=== PATIENT | female | born 1975 | race Caucasian/White ===

== ENCOUNTER 2020-01-25 17:19 | Outpatient (REF) | payer BC, SELFPAY | END 2020-01-25 17:20 | disposition home or self-care (01) | LOC: HO.LNP 17:19 | PROVIDERS: Visit Provider Nurse Practitioner Family | DX: N39.0 Urinary tract infection, site not specified (principal) | CPT/HCPCS: 87086 ==

== ENCOUNTER 2020-05-18 08:58 | Outpatient (REF) | payer BC, SELFPAY ==
--- NOTE | ~2020-05-18 | MM_ITS ---
EXAMINATION: MM SCREENING DIGITAL BREAST TOMOSYNTHESIS, BILATERAL CLINICAL INFORMATION: Screening. Asymptomatic. The lifetime risk of breast cancer based on the Tyrer-Cuzick Model is 13%. COMPARISON: Mammography: 05/01/2019, 05/07/2018, 04/22/2017 TECHNIQUE: Digital breast tomosynthesis is performed in both the craniocaudal and mediolateral oblique views along with computer-aided detection (CAD). Synthesized 2D images are generated from the tomosynthesis. FINDINGS: There are scattered areas of fibroglandular density (ACR BI-RADS breast composition Category b). There are no significant masses, abnormal calcifications, or other abnormalities. There is stable parenchymal asymmetry on the left. There is no developing density. No significant changes from prior studies. MM/MM tomosynthesis screening BI IMPRESSION: No mammographic evidence of malignancy. ASSESSMENT: BI-RADS 2: Benign RECOMMENDATION: Routine annual mammography screening. This patient's information was entered into a reminder system with a target due date for their next mammogram.
== END 2020-05-18 08:59 | disposition home or self-care (01) ==
LOC: HO.MAMMO 08:58
PROVIDERS: PCP Internal Medicine; Visit Provider Internal Medicine
DX: Z12.31 Encounter for screening mammogram for malignant neoplasm of breast (principal)
CPT/HCPCS: 77063; 77067

== ENCOUNTER 2020-07-02 13:54 | Outpatient (REF) | payer BC, SELFPAY ==
[2020-07-03 09:24] LABS: BV Int Neg Control Negative (Negative); BV Int Pos Control Positive (Positive)
== END 2020-07-02 13:55 | disposition home or self-care (01) ==
LOC: HO.LAB 13:54
PROVIDERS: Visit Provider Advanced Practice Midwife
DX: Z01.411 Encounter for gynecological examination (general) (routine) with abnormal findings (principal); R23.2 Flushing; R10.2 Pelvic and perineal pain
CPT/HCPCS: 87480; 87510; 87660

== ENCOUNTER 2020-07-09 15:22 | Outpatient (REF) | payer BC, SELFPAY ==
--- NOTE | ~2020-07-09 | US_ITS ---
EXAMINATION: PELVIC ULTRASOUND CLINICAL INFORMATION: Pelvic pain COMPARISON: None TECHNIQUE: Transabdominal and transvaginal pelvic ultrasound was performed. Transvaginal exam was performed for better visualization of the uterus and ovaries. FINDINGS: The uterus is retroverted and measures 8.2 x 4 x 4.9 cm in dimension. There is a 1.3 x 1.1 x 1.5 cm hypoechoic area in the left uterine body adjacent to the endometrium questionable for a submucosal fibroid. No other focal uterine lesion is seen. Endometrial thickness is normal measuring 0.6 cm. The ovaries are normal. The right ovary measures 3.1 x 1.2 x 1.8 cm and the left ovary measures 3 x 1.3 x 1.6 cm. There is no fluid in the pelvis. US/US pelvic complete IMPRESSION: Question 1.3 x 1.5 x 1.1 cm submucosal left uterine body fibroid. Otherwise unremarkable exam.
--- NOTE | ~2020-07-09 | US_ITS ---
EXAMINATION: PELVIC ULTRASOUND CLINICAL INFORMATION: Pelvic pain COMPARISON: None TECHNIQUE: Transabdominal and transvaginal pelvic ultrasound was performed. Transvaginal exam was performed for better visualization of the uterus and ovaries. FINDINGS: The uterus is retroverted and measures 8.2 x 4 x 4.9 cm in dimension. There is a 1.3 x 1.1 x 1.5 cm hypoechoic area in the left uterine body adjacent to the endometrium questionable for a submucosal fibroid. No other focal uterine lesion is seen. Endometrial thickness is normal measuring 0.6 cm. The ovaries are normal. The right ovary measures 3.1 x 1.2 x 1.8 cm and the left ovary measures 3 x 1.3 x 1.6 cm. There is no fluid in the pelvis. US/US transvaginal IMPRESSION: Question 1.3 x 1.5 x 1.1 cm submucosal left uterine body fibroid. Otherwise unremarkable exam.
== END 2020-07-09 15:23 | disposition home or self-care (01) ==
LOC: HO.HMGCX 15:22
PROVIDERS: Visit Provider Advanced Practice Midwife
DX: R10.2 Pelvic and perineal pain (principal)
CPT/HCPCS: 76830; 76856

== ENCOUNTER → 2020-07-17 11:17 | Outpatient (BNVA) | payer BC, SELFPAY | PROVIDERS: Visit Provider Advanced Practice Midwife ==

== ENCOUNTER 2021-05-27 08:28 | Outpatient (REF) | payer BC, SELFPAY ==
--- NOTE | ~2021-05-27 | MM_ITS ---
EXAMINATION: MM SCREENING DIGITAL BREAST TOMOSYNTHESIS, BILATERAL CLINICAL INFORMATION: Screening. Asymptomatic. The lifetime risk of breast cancer based on the Tyrer-Cuzick Model is 13%. COMPARISON: Mammography: 05/18/2020, 05/13/2019, 05/07/2018, 04/22/2017 TECHNIQUE: Digital breast tomosynthesis is performed in both the craniocaudal and mediolateral oblique views along with computer-aided detection (CAD). Synthesized 2D images are generated from the tomosynthesis. FINDINGS: There are scattered areas of fibroglandular density (ACR BI-RADS breast composition Category b). There are no significant masses, abnormal calcifications, or other abnormalities. Parenchymal pattern is similar to prior exams. There is stable parenchymal asymmetry on the left. No developing density. The axilla are unremarkable. No significant changes. MM/MM tomosynthesis screening BI IMPRESSION: No mammographic evidence of malignancy. ASSESSMENT: BI-RADS 2: Benign RECOMMENDATION: Routine annual mammography screening. This patient's information was entered into a reminder system with a target due date for their next mammogram.
== END 2021-05-27 08:29 | disposition home or self-care (01) ==
LOC: HO.MAMMO 08:28
PROVIDERS: PCP Internal Medicine; Visit Provider Internal Medicine
DX: Z12.31 Encounter for screening mammogram for malignant neoplasm of breast (principal)
CPT/HCPCS: 77063; 77067

== ENCOUNTER → 2021-07-08 12:53 | Outpatient (BNVA) | payer BC, SELFPAY | PROVIDERS: PCP Internal Medicine; Visit Provider Advanced Practice Midwife | DX: Z13.89 Encounter for screening for other disorder (principal) ==

== ENCOUNTER 2022-03-16 07:02 | Outpatient (REF) | payer BC, SELFPAY ==
[2022-03-16 11:24] LABS: MANUAL DIFF FLAG NO
[2022-03-16 11:34] LABS: Basophils Absolute Auto 0.1 X10*3/uL (0.0-0.2); Basophils Percent Auto 1.1 % (0-2); Eosinophils Absolute Auto 0.2 X10*3/uL (0.0-0.4); Eosinophils Percent Auto 3.3 % (0-4); Hematocrit 41.3 % (37.0-47.0); Hemoglobin 13.5 g/dl (12.0-16.0); Imm Gran Abs Auto 0.02 X10*3/uL (0.00-0.03); Imm Gran Pct Auto 0.3 % (0.0-0.4); Lymphocytes Absolute Auto 2.5 X10*3/uL (1.2-4.9); Lymphocytes Percent Auto 39.3 % (20-40); Mean Corpuscular HGB Conc 32.7 g/dl (31.0-35.0); Mean Corpuscular Hemoglobin 28.5 pg (27.0-33.0); Mean Corpuscular Volume 87.1 fL (80.0-98.0); Mean Platelet Volume 9.7 fL (9.4-12.3); Monocytes Absolute Auto 0.4 X10*3/uL (0.1-1.2); Monocytes Percent Auto 6.9 % (2-11); Neutrophils Absolute Auto 3.1 x10*3/uL (2.0-8.3); Neutrophils Percent Auto 49.1 % (45-73); Platelet Count 341 X10*3/uL (160-400); Red Blood Count 4.74 X10*6/uL (4.20-5.50); Red Cell Distribution Width 13.2 % (11.0-16.0); White Blood Count 6.4 X10*3/uL (4.8-10.8)
[2022-03-16 11:37] LABS: Appearance Urine Clear; Color Urine Yellow; Glucose Urine UA Negative (Negative); Leukocyte Esterase Urine Negative (Negative); Nitrite Urine Negative (Negative); PH 6.5 (5.0-9.0); Specific Gravity - Urine 1.025 (1.005-1.025); UMIC TRIGGER UACC YES; Urine Blood Moderate (2+) (Negative); Urine Ketones Negative (Negative); Urine Protein Negative (Neg-Trace)
[2022-03-16 11:40] LABS: Bacteria Urine 1+ (None Seen); Hyaline Casts Urine 0-2 /LPF (0-2); WBC Urine 0-5 /HPF (0-5)
[2022-03-16 12:21] LABS: Alanine Aminotransferase 24 U/L (0-31); Albumin Level 4.1 g/dL (3.5-5.0); Alkaline Phosphatase 61 U/L (39-117); Anion Gap 11 (12-20); Aspartate Amino Transferase 16 U/L (5-31); Bilirubin Total 0.8 mg/dL (0.0-1.0); Blood Urea Nitrogen 14 mg/dL (9-16); Calcium 9.4 mg/dL (8.4-10.2); Carbon Dioxide 28 mmol/L (22-29); Chloride 107 mmol/L (96-108); Cholesterol 245 mg/dL; Estimated Glomerular Filt Rate > 60; Glucose Fasting 92 mg/dL (60-99); HDL Cholesterol 44 mg/dL; LDL Cholesterol Calculated 167 mg/dl; Potassium 4.4 mmol/L (3.3-5.1); Sodium 142 mmol/L (135-145); TSH reflex Free T4 3.71 uIU/mL (0.32-4.0); Total Protein 6.7 g/dL (6.5-8.0); Triglycerides 173 mg/dL; Vitamin D 25-OH Total 21.1 ng/mL (>30)
== END 2022-03-16 07:03 | disposition home or self-care (01) ==
LOC: HO.HMGCLDS 07:02
PROVIDERS: PCP Internal Medicine; Visit Provider Internal Medicine
DX: Z00.00 Encounter for general adult medical examination without abnormal findings (principal); E55.9 Vitamin D deficiency, unspecified; E78.00 Pure hypercholesterolemia, unspecified; R30.0 Dysuria; E66.01 Morbid (severe) obesity due to excess calories; Z68.41 Body mass index [BMI] 40.0-44.9, adult
CPT/HCPCS: 36415; 80053; 80061; 81001; 82306; 84443; 85025

== ENCOUNTER → 2022-05-18 11:22 | Outpatient (BNVA) | payer BC, SELFPAY | PROVIDERS: PCP Internal Medicine; Visit Provider Nurse Practitioner Family | DX: Z13.89 Encounter for screening for other disorder (principal) ==

== ENCOUNTER 2022-06-02 08:37 | Outpatient (REF) | payer BC, SELFPAY ==
--- NOTE | ~2022-06-02 | MM_ITS ---
EXAMINATION: MM SCREENING DIGITAL BREAST TOMOSYNTHESIS, BILATERAL CLINICAL INFORMATION: Screening. Asymptomatic. The lifetime risk of breast cancer based on the Tyrer-Cuzick Model is 12.2%. COMPARISON: Mammography: May 27, 2021 and studies dating back to February 02, 2014 TECHNIQUE: Digital breast tomosynthesis is performed in both the craniocaudal and mediolateral oblique views along with computer-aided detection (CAD). Synthesized 2D images are generated from the tomosynthesis. FINDINGS: There are scattered areas of fibroglandular density (ACR BI-RADS breast composition Category b). There are no significant masses, abnormal calcifications, or other abnormalities. MM/MM tomosynthesis screening BI IMPRESSION: No significant changes from prior exam. ASSESSMENT: BI-RADS 1: Negative RECOMMENDATION: Routine annual mammography screening. This patient's information was entered into a reminder system with a target due date for their next mammogram.
== END 2022-06-02 08:38 | disposition home or self-care (01) ==
LOC: HO.MAMMO 08:37
PROVIDERS: PCP Internal Medicine; Visit Provider Internal Medicine
DX: Z12.31 Encounter for screening mammogram for malignant neoplasm of breast (principal)
CPT/HCPCS: 77063; 77067

== ENCOUNTER → 2022-07-10 12:56 | Outpatient (BNVA) | payer BC, SELFPAY | PROVIDERS: PCP Internal Medicine; Visit Provider Advanced Practice Midwife | DX: Z13.89 Encounter for screening for other disorder (principal) ==

== ENCOUNTER 2022-07-15 10:51 | Outpatient (REF) | payer BC, SELFPAY ==
--- NOTE | ~2022-07-15 | US_ITS ---
EXAMINATION: US PELVIS CLINICAL INFORMATION: Pelvic and perineal pain; the last menstrual period was on 07/03/2022. COMPARISON: Pelvic ultrasound dated 07/09/2020. TECHNIQUE: Ultrasound of the pelvis is performed using both transabdominal and transvaginal transducers along with Doppler. Transvaginal imaging is performed due to inadequate visualization transabdominally. FINDINGS: The uterus is of normal size and echogenicity, measuring 8.6 x 4.3 x 4.1 cm. The uterus is retroverted and retroflexed. A regular, homogeneous endometrium is identified measuring 1.2 cm. The cervical length is cm. FIBROIDS: There is 1 fibroid seen. 1. Location: Leftward distal body, subendometrial. Size: 1.3 x 0.9 x 1.0 cm. Prior: 1.3 x 1.1 x 1.5 cm. Fibroid characteristics: Heterogeneous echotexture. Both ovaries are of normal size and echogenicity. The right ovary measures 3.1 x 0.8 x 1.3 cm for a volume of 1.7 mL. The left ovary measures 3.8 x 2.1 x 2.4 cm for a volume of 10.0 mL. The left ovary contains a 2.0 x 1.9 x 2.1 cm hemorrhagic cyst, with internal reticulated contents and no associated color Doppler flow. There is a small amount of free fluid in the cul-de-sac. No adnexal masses seen. US/US pelvic and transvaginal IMPRESSION: 1. A small uterine fibroid is seen. 2. A 2.1 cm benign left ovarian hemorrhagic cyst is incidentally noted. This requires no imaging follow-up. 3. There is a small amount of nonspecific free fluid in the cul-de-sac.
== END 2022-07-15 10:52 | disposition home or self-care (01) ==
LOC: HO.US 10:51
PROVIDERS: PCP Internal Medicine; Visit Provider Advanced Practice Midwife
DX: R10.2 Pelvic and perineal pain (principal)
CPT/HCPCS: 76830; 76856

== ENCOUNTER → 2022-07-29 07:46 | Outpatient (BNVA) | payer BC, SELFPAY | PROVIDERS: PCP Internal Medicine; Visit Provider Advanced Practice Midwife | DX: Z13.89 Encounter for screening for other disorder (principal) ==

== ENCOUNTER 2022-09-28 08:34 | Outpatient (REF) | payer BC, SELFPAY ==
--- NOTE | ~2022-09-28 | XR_ITS ---
EXAMINATION: XR FOOT, RIGHT CLINICAL INFORMATION: Right foot pain. COMPARISON: None available. TECHNIQUE: AP, lateral, and oblique views of the right foot. FINDINGS: There is no acute fracture or dislocation. The joint spaces are unremarkable. The tarsal bones are normally aligned. Very small plantar calcaneal spur. The soft tissues are unremarkable. XR/XR foot RT min 3V IMPRESSION: Very small plantar calcaneal spur. No acute abnormality or significant degenerative changes.
== END 2022-09-28 08:35 | disposition home or self-care (01) ==
LOC: HO.HMGCX 08:34
PROVIDERS: PCP Internal Medicine; Visit Provider Internal Medicine
DX: M79.671 Pain in right foot (principal)
CPT/HCPCS: 73630

== ENCOUNTER 2023-02-23 08:44 | Outpatient (AMB) | payer BC, SELFPAY ==
[2023-02-23 08:46] VITALS: BP 112/80; PULSE 61; O2SAT 96; BMI 40.8
--- NOTE | 2023-02-23 08:46 | MHC.PC.OV ---
"Vital Signs 02/23/23 08:46 Height 5 ft 2 in Weight 223 lb 2 oz BMI 40.8 BP 112/80 Blood Pressure Location Lt brachial Position Sitting Pulse 61 Pulse Source Pulse Oximeter Pulse Oximetry (%) 96 Oxygen Delivery Method Room Air Intake Visit Reasons: Annual Exam Hotel Concierge Required: No Accompanied by: Self / Same As Patient Allergies azithromycin [AZITHROMYCIN] Allergy (Unknown, Verified 02/23/23 09:17) TACHYCARDIA penicillin V Allergy (Unknown, Verified 02/23/23 09:17) angioedema Sulfa (Sulfonamide Antibiotics) [SULFA (SULFONAMIDE ANTIBIOTICS)] Allergy (Unknown, Verified 02/23/23 09:17) HIVES, TACHYCARDIA, hives Medication List - Last Reconciled 02/23/23 by Ketan Hyman MD bisacodyl (Dulcolax (bisacodyl)) 10 mg (2 x 5 mg) PO ONCE 1 day cholecalciferol (vitamin D3) 50 mcg PO DAILY 90 days famotidine (Pepcid) 20 mg PO BID PRN multivitamin (Multiple Vitamins tablet) 1 tab PO DAILY polyethylene glycol 3350 (Miralax) 238 grams PO ONCE Tobacco use date assessed: 02/23/23 Dental Screening Dental Screen Date: 02/23/23 Did you have a dental visit in the last 12 months?: Yes Did you have a dental problem in the last 6 months where you did not have access to dental care?: No Was dental information given to patient?: Patient has dentist HPI Annual Exam HPI Details Patient comes in today for her annual physical examination States that she feels okay She denies any headaches or dizziness Denies any chest pains, no SOB No nausea/vomiting, no abdominal pain No change in bowel habits noted Denies any acute urinary symptoms She is now scheduled for her screening colonoscopy and EGD on 04/16/2023 Is scheduled for her annual mammogram in May 2023 and her gynecology exam and pap smear in July 2023 [facility] Medical History Vitamin D deficiency Mixed hyperlipidemia Morbid obesity with BMI of 40.0-44.9, adult GERD (gastroesophageal reflux disease) Surgical History Hx of adenoidectomy Hx of tonsillectomy Family History Mother Ovarian cancer Maternal Grandmother History of breast cancer Social History Household Members: Spouse and Children Housing: House Alcohol intake: current Alcohol intake frequency: a few times a month Patient Tobacco Use Status: Never used Tobacco e-Cigarette/Vaping Use: Never Used Second Hand Smoke Exposure: No Current occupational status: employed 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 1. Little interest or pleasure in doing things: not at all 2. Feeling down, depressed, or hopeless: not at all 3. Trouble falling or staying asleep, or sleeping too much: not at all 4. Feeling tired or having little energy: not at all 5. Poor appetite or overeating: not at all 6. Feeling bad about yourself - or that you are a failure or have let yourself or your family down: not at all 7. Trouble concentrating on things, such as reading the newspaper or watching television: not at all 8. Moving or speaking so slowly that other people could have noticed. Or the opposite - being so fidgety or restless that you have been moving around a lot more than usual: not at all 9. Thoughts that you would be better off or of hurting yourself in some way: not at all Total score: 0 Depression Screening Interpretation: Negative Depression Screening Done: Yes 80771 - PHQ-9 Billing: Yes Source: Developed by Drs. Greg Foreman, Neeta Gomes, Pietro Mckeon and colleagues, with an educational carey from [employer]. Thrive Questionnaire Date Thrive assessed: 02/23/23 I am a: Patient What is your living situation today?: I have a steady place to live Within the past 12 months, did the food you bought not last and you didn't have the money to get more?: Never true Within the past 12 months, did you worry whether your food would run out before you got money to buy more?: Never true Do you have trouble paying for medicines?: No Do you have trouble getting transportation to medical appointments?: No Do you have trouble paying your heating and electricity bill?: No Do you have trouble taking care of your child, family member or friend?: No Do you have trouble with day-to-day activities such as bathing, preparing meals, shopping, managing finances, etc.?: No Are you currently unemployed and looking for a job?: No Are you interested in more education?: No Please select the resources that you would like help with: None Currently or been in a relationship where the following occur: no concerns reported AUDIT C Alcohol Use Questionnaire (AUDIT-C) 1. How often do you have a drink containing alcohol?: 2-4 times a month 2. How many drinks containing alcohol do you have on a typical day when you are drinking?: 1 or 2 3. How often do you have six or more drinks on one occasion?: Never Total Score: 2 Score Reviewed/Action Taken: Yes VANESSA-7 AMB Questionnaire VANESSA-7 Date VANESSA - 7 assessed: 02/23/23 Feeling nervous, anxious, or on edge: 0 = Not at all Not being able to stop or control worryin = Not at all Worrying too much about different things: 0 = Not at all Trouble relaxin = Not at all Being so restless that it is hard to sit still: 0 = Not at all Becoming easily annoyed or irritable: 0 = Not at all Feeling afraid as if something awful might happen: 0 = Not at all Total VANESSA-7 score (0-4 normal; 5-9 mild; 10-14 moderate; 15-21 severe): 0 Source: Developed by Drs. Greg Foreman, Neeta Gomes, Pietro Mckeon and colleagues, with an educational carey from [employer]. Review of Systems Const Denies chills, Denies fatigue, Denies fever(s), Denies headache(s) and Denies malaise Eyes Denies blurry vision, Denies change in vision, Denies irritation and Denies itchy eyes ENT Denies dysphagia, Denies dizziness, Denies otalgia, Denies headache(s), Denies nasal congestion, Denies neck pain, Denies odynophagia, Denies sinus pain and Denies sore throat Card Denies chest pain, Denies rapid heart rate, Denies irregular heart rhythm, Denies palpitations and Denies dyspnea Resp Denies chest congestion, Denies cough, Denies dyspnea and Denies wheezing GI Denies abdominal pain, Denies bloating, Denies constipation, Denies dysphagia, Denies heartburn, Denies diarrhea, Denies nausea, Denies odynophagia and Denies vomiting Denies hematuria, Denies urinary frequency, Denies dysuria, Denies urinary incontinence and Denies urinary urgency Musc Denies back pain, Denies arthralgias, Denies joint swelling, Denies muscle weakness and Denies neck pain Skin/Breast Denies breast pain, Denies breast mass, Denies change in pigmentation, Denies lesions, Denies rash and Denies unusual bruising Neuro Denies dizziness, Denies headache(s) and Denies paresthesias Psych Denies anxiety and Denies depression Endo Denies fatigue and Denies palpitations Tay/Lymph Denies easy bruising Aller/Immun Denies itchy eyes and Denies wheezing Physical exam (Primary Care) Vital Signs: Last Vital Signs Pulse 61 02/23/23 08:46 BP 112/80 02/23/23 08:46 Pulse Ox 96 02/23/23 08:46 Oxygen Delivery Method Room Air 02/23/23 08:46 BMI result Body Mass Index 40.8 Tobacco/Smoking Status: Tobacco use Status Tobacco use date assessed 02/23/23 02/23/23 08:48 Patient Tobacco Use Status Never used Tobacco 02/23/23 08:48 e-Cigarette/Vaping Use Never Used 02/23/23 08:48 PHQ-9: PHQ-9 Score PHQ-9: Total score 0 02/23/23 09:23 Depression Screening Interpretation: Negative Thrive Assessment: Date of Thrive Assessment Date Thrive assessed 02/23/23 02/23/23 08:48 Currently or been in a relationship where the following occur: no concerns reported Const General: no acute distress, alert and awake Orientation/consciousness: patient oriented x3 HENMT Head: Yes normocephalic and Yes atraumatic Ears: external ears normal, TM's normal bilaterally and EAC's normal General nose exam: No nasal discharge present Face and sinus: Yes normal facial exam and Yes sinuses nontender Teeth and gingiva: dentition normal Throat: Yes posterior oropharynx normal and Yes tonsils normal (no TP congestion) Eyes Eyelids: Yes eyelids normal Conjunctivae: conjunctivae normal Pupils: Equal, round and reactive pupils present EOM: EOMs intact bilaterally Neck Neck: Yes no lymphadenopathy and Yes supple Thyroid: Thyroid normal Resp Auscultation: clear to auscultation bilaterally, no rales and no wheezes Cardio Rate: regular rate Rhythm: regular rhythm Heart sounds: no murmurs GI Palpation (GI): Soft to palpation, nontender and No hepatosplenomegaly present Auscultation: normal bowel sounds General: Yes no CVA tenderness Back/Spine/Pelvis Back: no CVA tenderness Thoracic/Lumbar Spine: thoracic and lumbar spine normal to inspection Skin Lesions: no lesions Rashes: no rashes Neuro General: patient oriented x3, moves all extremities, no focal motor deficits and CN's II-XI intact bilaterally Cranial nerves: Yes Equal, round and reactive pupils present Cognition (Neuro): normal cognition Gait exam (Neuro): Normal gait present Extrem General: Yes no clubbing, cyanosis or edema Assessment and Plan Assessment & Plan (1) Annual physical exam: Code(s): Z00.00 - Encounter for general adult medical examination without abnormal findings Plan: Check labs Patient is scheduled for her screening colonoscopy and EGD on 04/16/2023 Is scheduled for her annual mammogram in May 2023 and her gynecology exam and pap smear in July 2023 (2) GERD (gastroesophageal reflux disease): Code(s): K21.9 - Gastro-esophageal reflux disease without esophagitis Qualifiers: Esophagitis presence: without esophagitis Qualified Code(s): K21.9 - Gastro-esophageal reflux disease without esophagitis Plan: Dietary restrictions reinforced Upper GI series done in the past revealed (+) reflux; patient states that she only takes OTC Pepcid as needed for symptomatic relief Will be getting a repeat EGD for follow up at the same time as her colonoscopy in April 2023 (3) Vitamin D deficiency: Code(s): E55.9 - Vitamin D deficiency, unspecified Plan: Continue Vitamin D3 2000 units QD Will recheck her Vitamin D level for follow up (4) Morbid obesity with BMI of 40.0-44.9, adult: Code(s): E66.01 - Morbid (severe) obesity due to excess calories; Z68.41 - Body mass index [BMI] 40.0-44.9, adult Plan: Reinforced diet/exercise as tolerated/lose weight Plan To return in 1 year for her next annual physical examination Orders: Orders Complete Blood Count Auto Diff Today Z00.00 - Encounter for general adult medical examination without abnormal findings Lipid Panel Today E78.00 - Pure hypercholesterolemia, unspecified, Z00.00 - Encounter for general adult medical examination without abnormal findings TSH reflex Free T4 Today E78.00 - Pure hypercholesterolemia, unspecified, Z00.00 - Encounter for general adult medical examination without abnormal findings Vitamin D 25-OH Total Today E55.9 - Vitamin D deficiency, unspecified, Z00.00 - Encounter for general adult medical examination without abnormal findings Comprehensive Carriere. Panel Fast Today E78.00 - Pure hypercholesterolemia, unspecified, Z00.00 - Encounter for general adult medical examination without abnormal findings UA CC w/rflx Micro + Cult Today R30.0 - Dysuria, Z00.00 - Encounter for general adult medical examination without abnormal findings Coding Level of Care Code Est Pt Prev Care 40-64y(32799) Diagnoses Annual physical exam Z00.00 Gastroesophageal reflux disease without esophagitis K21.9 Esophagitis presence: without esophagitis Vitamin D deficiency E55.9 Morbid obesity with BMI of 40.0-44.9, adult E66.01; Z68.41"
== END 2023-02-23 09:26 | disposition home or self-care (01) ==
PROVIDERS: Visit Provider Internal Medicine
DX: Z00.00 Encounter for general adult medical examination without abnormal findings (principal); K21.9 Gastro-esophageal reflux disease without esophagitis; E66.01 Morbid (severe) obesity due to excess calories; Z68.41 Body mass index [BMI] 40.0-44.9, adult; E55.9 Vitamin D deficiency, unspecified
CPT/HCPCS: 99396

== ENCOUNTER 2023-04-16 07:42 | Day surgery (SDC) | payer BC, SELFPAY ==
--- NOTE | 2023-04-15 12:08 | HO.ANESPROP2 ---
Documented by User: Lakia Austin NP 04/15/23 12:09 HPI - Anesthesia Eval Consult details Narrative: 48yo F for Upper Endoscopy and Colonoscopy PMFSH Active Problems Active Problems: All Active Problems (Updated 02/23/23 @ 09:24 by Ketan Hyman MD) Annual physical exam (Acute) Heel spur (Acute) Vitamin D deficiency (Acute) Mixed hyperlipidemia (Acute) Pain of right heel (Acute) Colon cancer screening (Acute) GERD (gastroesophageal reflux disease) (Acute) Morbid obesity with BMI of 40.0-44.9, adult (Acute) Pelvic pain in female (Acute) Hot flashes (Acute) Encounter for annual routine gynecological examination (Acute) Urinary frequency (Acute) Hematuria (Acute) Past Medical History Medical History Vitamin D deficiency Mixed hyperlipidemia Morbid obesity with BMI of 40.0-44.9, adult GERD (gastroesophageal reflux disease) Family History Family History Mother Ovarian cancer Maternal Grandmother History of breast cancer Surgical History Surgical History Hx of adenoidectomy Hx of tonsillectomy Social History Social History Household Members: Spouse and Children Housing: House Alcohol intake: current Alcohol intake frequency: a few times a month Patient Tobacco Use Status: Never used Tobacco e-Cigarette/Vaping Use: Never Used Second Hand Smoke Exposure: No Use of substances other than those prescribed or required for medical reasons: No Are you DNR?: No Advance Directives: No Advance Directives Information Provided: Yes Current occupational status: employed 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[employer] Sexual orientation: Straight/Heterosexual Gender identity: Female Cognitive needs: No Hearing needs: No Vision needs: No Meds Allergies Allergy/AdvReac Type Severity Reaction Status Date / Time azithromycin [AZITHROMYCIN] Allergy Unknown TACHYCARDIA Verified 02/23/23 09:17 penicillin V Allergy Unknown angioedema Verified 02/23/23 09:17 Sulfa (Sulfonamide Allergy Unknown HIVES, Verified 02/23/23 09:17 Antibiotics) TACHYCARDIA, [SULFA (SULFONAMIDE hives ANTIBIOTICS)] Assessment and Plan Assessment Anesthesia Assessment: Chart Reviewed Documented by User: Leigha Zee MD 04/16/23 09:13 [facility] Past Medical History Medical History Vitamin D deficiency Mixed hyperlipidemia Morbid obesity with BMI of 40.0-44.9, adult GERD (gastroesophageal reflux disease) Family History Family History Mother Ovarian cancer Maternal Grandmother History of breast cancer Family history of problems with anesthesia: No Surgical History Surgical History Hx of adenoidectomy Hx of tonsillectomy History of Problems with Anesthesia: No Social History Social History Household Members: Spouse and Children Housing: House Alcohol intake: current Alcohol intake frequency: a few times a month Patient Tobacco Use Status: Never used Tobacco e-Cigarette/Vaping Use: Never Used Second Hand Smoke Exposure: No Use of substances other than those prescribed or required for medical reasons: No Are you DNR?: No Advance Directives: No Advance Directives Information Provided: Yes Current occupational status: employed 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[employer] Sexual 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: 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/Heterosexual Gender identity: Female Cognitive needs: No Hearing needs: No Vision needs: No Meds Allergies Allergy/AdvReac Type Severity Reaction Status Date / Time azithromycin [AZITHROMYCIN] Allergy Unknown TACHYCARDIA Verified 02/23/23 09:17 penicillin V Allergy Unknown angioedema Verified 02/23/23 09:17 Sulfa (Sulfonamide Allergy Unknown HIVES, Verified 02/23/23 09:17 Antibiotics) TACHYCARDIA, [SULFA (SULFONAMIDE hives ANTIBIOTICS)] Exam Airway Mallampati Class: II TM Dist: >3cm Neck ROM: Full Heart: rrr Lungs: cta Assessment and Plan Assessment Anesthesia Assessment: Anesthesia Plan Discussed Final Anesthetic Review Family History of Problems with Anesthesia: No History of Problems with Anesthesia: No NPO: Yes ASA Class: III Final Preanesthetic Review: No Changes in Pt Med Stat, Meds/Allgs Chart Reviewed and Consent Obtained/Reviewed Patient Risk: Intermediate Procedure Risk: Intermediate Anesthetic Plan Anesthetic Plan: MAC: Disposition: Standard PACU
[2023-04-16 08:51] VITALS: BMI 40.7
[2023-04-16 09:10] VITALS: BP 152/77; PULSE 62; RESP 16; TEMP 36.3; O2SAT 99
--- NOTE | 2023-04-16 09:15 | MHC.SHP ---
Pre-Procedural Eval Section A Date of Service: 04/16/23 The patient is an INPATIENT: No The History & Physical has been completed within 30 days and I have reviewed it.: No Section B Chief Complaint: Colon cancer screening, GERD Relevant Family History (Specify if Yes): No Relevant Social History: None Present Medications: see Short Stay Collaborative assessment Medical History: Significant History (GERD (gastroesophageal reflux disease) Morbid obesity with BMI of 40.0-44.9, adult) History of Previous Operations: Relevant previous surgery/procedure and date(s) (History of tonsillectomy and adenoidectomy) Allergies: Allergies Allergy/AdvReac Type Severity Reaction Status Date / Time azithromycin [AZITHROMYCIN] Allergy Unknown TACHYCARDIA Verified 02/23/23 09:17 penicillin V Allergy Unknown angioedema Verified 02/23/23 09:17 Sulfa (Sulfonamide Allergy Unknown HIVES, Verified 02/23/23 09:17 Antibiotics) TACHYCARDIA, [SULFA (SULFONAMIDE hives ANTIBIOTICS)] Review of Systems Sugical H&P ROS: Negative: Constitution, Cardiovascular, Respiratory and Gastrointestinal Exam Surgical H&P Exam: Normal: Heart, Normal: Lungs, Normal: Extremities and Normal: Abdomen Plan Diagnosis/Plan: Unchanged I have reviewed the history and physical and performed a pertinent physical examination on my patient. No changes have occurred unless specified. Time Spent With Patient Time: Total time managing care of this patient today ____ minutes.
--- NOTE | 2023-04-16 09:20 | W.PM.OPN ---
Operative Note Operative Note Date of Service: 04/16/23 Narrative: FLEXIBLE TRANSORAL UPPER GASTROINTESTINAL ENDOSCOPY WITH BIOPSIES AND COLONOSCOPY TILL CECUM WITH Pre-op diagnosis: Colon cancer screening, GERD Post-op diagnosis: GERD, gastritis, diverticulosis? Endoscopist:? Rafal Howard MD Anesthesia:?MAC UPPER ENDOSCOPY Consent: Indications for the procedure and potential complications of bleeding, perforation, reaction to medications and missed diagnosis were discussed with the patient and informed consent was obtained. Instrument: Olympus GIF H 190 mid size upper endoscope Monitoring: Vital signs and clinical assessment, continuous EKG monitoring, Pulse oximetry, Carbon Dioxide monitoring and blood pressure monitoring were done throughout the procedure. Procedure: The patient was placed in the left lateral decubitis position and pre-procedure medications were administered and a bite block was placed. The endoscope was inserted into the mouth and advanced under direct vision to the third part of duodenum. A careful inspection was made as the upper endoscope was withdrawn including a retroflexed examination of the proximal stomach; Findings and interventions are described below. Findings: Larynx: Normal Esophagus: GE junction at 35 cms. No esophagitis or Burton's. Stomach: Mild gastric antral erythema with a few small chronic appearing erosions. Biopsies were obtained. Grade 2 flap valve on retroflexed examination of the cardia. Duodenum: Normal bulb and descending duodenum Intervention: Biopsies as noted above COLONOSCOPY PROCEDURE NOTE Consent: Indications for the procedure and potential complications of bleeding, perforation, reaction to medications and missed diagnosis were discussed with the patient and informed consent was obtained. Instrument: Olympus PCF H 190 L variable stiffness pediatric colonoscope Monitoring: Vital signs and clinical assessment, intermittent blood pressure monitoring, continuous EKG monitoring, Pulse oximetry and Carbon Dioxide monitoring were done throughout the procedure. Colon withdrawl time was 12 minutes. Procedure: The patient was placed in the left lateral decubitis position and pre-procedure medications were administered. After a digital rectal examination of the ano-rectum, the video colonoscope was inserted into the rectum and advanced through the colon to the cecum. The colonoscope was slowly withdrawn in a retrograde panoramic fashion and the colon mucosa was carefully examined including a retroflexed view of the rectum. Findings and interventions are described below. Procedure Difficulty: : Without difficulty Findings: Terminal Ileum: Not evaluated Cecum: Normal Ascending Colon: Normal Transverse Colon: Normal Descending Colon: Normal Sigmoid Colon: Moderate diverticulosis Rectum: Normal Ano-rectum: Small internal hemorrhoids Colon preparation: Excellent Impression and Post Procedure Diagnosis: Endoscopy Findings: STOMACH: Mild gastric antral erythema with a few small chronic appearing erosions Colonoscopy Findings: No polyps were detected Moderate diverticulosis seen in the sigmoid colon Small hemorrhoids on retroflexed exam. Plan: Await pathology results Patient has an appointment on 05/04/23 in the GI Clinic with Betsy Gusman FNP-BC. Repeat Colonoscopy in 10 years. Above findings were reviewed with the patient and GERD and diverticulosis handouts were given in the discharge area
[2023-04-16 10:01] VITALS: BP 100/54; PULSE 66; RESP 16; TEMP 36.3; O2SAT 98
[2023-04-16 10:20] VITALS: BP 110/63; PULSE 64; RESP 18; TEMP 36.3; O2SAT 98
== END 2023-04-16 10:38 | disposition home or self-care (01) ==
PROVIDERS: PCP Internal Medicine; Visit Provider Internal Medicine Gastroenterology
PROC: (CPT 45378; principal; 2023-04-16 09:20)
DX: Z12.11 Encounter for screening for malignant neoplasm of colon (principal); K57.30 Diverticulosis of large intestine without perforation or abscess without bleeding; K64.8 Other hemorrhoids; K21.9 Gastro-esophageal reflux disease without esophagitis; K29.50 Unspecified chronic gastritis without bleeding
CPT/HCPCS: 45378; 43239; 81025; 88305; 88342; J2704

== ENCOUNTER → 2023-04-16 07:42 | Outpatient (BNV) | payer BC, SELFPAY | PROVIDERS: PCP Internal Medicine; Visit Provider Internal Medicine Gastroenterology | DX: Z12.11 Encounter for screening for malignant neoplasm of colon (principal); K57.30 Diverticulosis of large intestine without perforation or abscess without bleeding; K64.8 Other hemorrhoids; K21.9 Gastro-esophageal reflux disease without esophagitis; K29.70 Gastritis, unspecified, without bleeding | CPT/HCPCS: 43239; 45378 ==

== ENCOUNTER 2023-05-04 13:34 | Outpatient (AMB) | payer BC, SELFPAY ==
[2023-05-04 13:37] VITALS: BP 131/58; PULSE 71; BMI 41.1
--- NOTE | 2023-05-04 13:37 | A.OFFVIS_ITS ---
Intake Vital Signs 05/04/23 13:37 Height 5 ft 2 in Weight 224 lb 13.944 oz BMI 41.1 BP 131/58 L Blood Pressure Location Lt brachial Position Sitting Pulse 71 Intake Visit Reasons: s/p egd/colon Intake Note: Waleska presents in the office as a follow up egd and colo. CC: No concerns today just here for the results of her procedures. Allergies azithromycin [AZITHROMYCIN] Allergy (Unknown, Verified 02/23/23 09:17) TACHYCARDIA penicillin V Allergy (Unknown, Verified 02/23/23 09:17) angioedema Sulfa (Sulfonamide Antibiotics) [SULFA (SULFONAMIDE ANTIBIOTICS)] Allergy (Unknown, Verified 02/23/23 09:17) HIVES, TACHYCARDIA, hives HPI s/p egd/colon HPI Details LAST VISIT Colon cancer screening Patient denies any GI, cardiac or respiratory symptoms.? Reports acid reflux occasionally. He uses Pepcid on as needed basis. Denies any issues with anesthesia in the past.? Denies any history of sleep apnea.? No history infectious diseases in the past or present.? Not on any anticoagulation therapy.? No family or personal history of colon cancer or polyps.? Patient denies melena, hematochezia, unintentional weight loss or ribbon like stools.? Discussed at length the pre-procedure,? prep, diet & medications as well as what to expect prior, during and after the procedure.?? Stressed the importance of good bowel prep. ?Recommended the use of Vaseline or Calmoseptine OTC & baby wipes with bowel movements to promote comfort.? ?Patient verbalizes understanding and agrees to plan of care.? She was given the opportunity to ask questions and all questions answered.? We will see her after the procedure.? GERD (gastroesophageal reflux disease) Discussed with patient the importance of avoiding dietary triggers and late night snacking. Staying upright for minimum 3 hours after meals discussed with patient. Continue famotidine on as needed basis. Plan Medications New bisacodyl (Dulcolax (bisacodyl)) take 2 tabs at noon the day before your colonoscopy 10 mg (2 x 5 mg) PO ONCE 1 day 2 tabs 0RF Z12.11 polyethylene glycol 3350 (Miralax) As directed by gastroenterology department at [facility] 238 grams PO ONCE 238 grams 0RF Z12.11 UPPER ENDOSCOPY AND COLONOSCOPY Findings: Larynx: Normal Esophagus: GE junction at 35 cms. No esophagitis or Burton's. Stomach: Mild gastric antral erythema with a few small chronic appearing erosions. Biopsies were obtained. Grade 2 flap valve on retroflexed examination of the cardia. Duodenum: Normal bulb and descending duodenum Intervention: Biopsies as noted above Findings: Terminal Ileum: Not evaluated Cecum: Normal Ascending Colon: Normal Transverse Colon: Normal Descending Colon: Normal Sigmoid Colon: Moderate diverticulosis Rectum: Normal Ano-rectum: Small internal hemorrhoids Colon preparation: Excellent Impression and Post Procedure Diagnosis: Endoscopy Findings: STOMACH: Mild gastric antral erythema with a few small chronic appearing erosions Colonoscopy Findings: No polyps were detected Moderate diverticulosis seen in the sigmoid colon Small hemorrhoids on retroflexed exam. Plan: Repeat Colonoscopy in 10 years. PATHOLOGY RESULTS Diagnosis Stomach, antrum, biopsy: Antral-type and oxyntic mucosa with mild chronic inactive inflammation; no Helicobacter organisms seen TODAY'S VISIT Patient is here today for follow-up and to discuss upper endoscopy and colonoscopy results. Patient denies any ill effects from the prep, anesthesia or procedure itself. Patient reports that she has been feeling well after the procedure. Symptoms of acid reflux only occasionally uses famotidine on as needed basis only. Patient denies eating late at night. Patient denies any dyspepsia, dysphagia or odynophagia. Reports that she has been moving her bowels well and states that she has no issues. Patient denies any melena, hematochezia, unintentional weight loss or ribbon like stools. Upper endoscopy and colonoscopy results as well as biopsy results discussed with patient. [facility] Medical History Vitamin D deficiency Mixed hyperlipidemia Morbid obesity with BMI of 40.0-44.9, adult GERD (gastroesophageal reflux disease) Surgical History (Updated 05/04/23 @ 13:37 by DIMITRI Cutler) Hx of colonoscopy History of esophagogastroduodenoscopy (EGD) Hx of adenoidectomy Hx of tonsillectomy Family History Mother Ovarian cancer Maternal Grandmother History of breast cancer Social History Household Members: Spouse and Children Housing: House Alcohol intake: current Alcohol intake frequency: a few times a month Patient Tobacco Use Status: Never used Tobacco e-Cigarette/Vaping Use: Never Used Second Hand Smoke Exposure: No Current occupational status: employed 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[employer] Sexual orientation: Straight/Heterosexual Gender identity: Female Cognitive needs: No Hearing needs: No Vision needs: No Female Reproductive History Menstrual Age of Menarche: 14 Physical Exam Vital Signs: Last Vital Signs Pulse 71 05/04/23 13:37 BP 131/58 L 05/04/23 13:37 BMI result Body Mass Index 41.1 Const General: healthy appearing, no acute distress and well developed Nutritional Appearance: obese Orientation/consciousness: patient oriented x3 Resp Effort & Inspection: normal respiratory effort, able to speak in complete sentences, no tracheal deviation and symmetric chest movement Auscultation: clear to auscultation bilaterally Cardio Rate: regular rate GI Inspection: Yes normal to inspection, No distended and Yes obesity Palpation (GI): Soft to palpation, not firm, nontender and No hepatosplenomegaly present Auscultation: normal bowel sounds General: Yes no CVA tenderness Back/Spine/Pelvis Back: no CVA tenderness Skin General skin exam: elasticity normal, turgor normal and dry skin Neuro General: patient oriented x3 Psych Appearance: grossly normal Mental Status: mental status grossly normal Assessment & Plan Assessment & Plan (1) GERD (gastroesophageal reflux disease): Code(s): K21.9 - Gastro-esophageal reflux disease without esophagitis Qualifiers: Esophagitis presence: without esophagitis Qualified Code(s): K21.9 - Gastro-esophageal reflux disease without esophagitis (2) Status post colonoscopy: Code(s): Z98.890 - Other specified postprocedural states Plan Patient had normal colonoscopy, no polyps, surveillance in 10 years, sooner if clinically necessary. Patient denies family history of CRC. Mild chronic inflammation in her stomach. Biopsy negative for dysplasia or H pylori. Patient is taking famotidine on as needed basis only. Discussed with patient avoiding dietary triggers and late night snacking. Staying upright for minimum 3 hours after meals discussed with her. Patient will follow-up in our office on as-needed basis. She is agreeable to this plan and verbalizes understanding of instructions. She was given the opportunity to ask questions and all questions answered. Thank you for allowing me to participate care Coding Level of Care Code Est Pt Level 3 (73556) Diagnoses Gastroesophageal reflux disease without esophagitis K21.9 Esophagitis presence: without esophagitis Status post colonoscopy Z98.890 Time Spent (min) 25 Comment 15 minutes spent with patient and additional 10 minutes spent reviewing her records
== END 2023-05-04 13:58 | disposition home or self-care (01) ==
PROVIDERS: PCP Internal Medicine; Visit Provider Nurse Practitioner Family
DX: K21.9 Gastro-esophageal reflux disease without esophagitis (principal); Z98.890 Other specified postprocedural states
CPT/HCPCS: 99213

== ENCOUNTER → 2023-05-04 13:34 | Outpatient (BNVA) | payer BC, SELFPAY | PROVIDERS: PCP Internal Medicine; Visit Provider Nurse Practitioner Family ==

== ENCOUNTER 2023-06-08 08:21 | Outpatient (REF) | payer BC, SELFPAY | END 2023-06-08 08:22 | disposition home or self-care (01) | LOC: HO.MAMMO 08:21 | PROVIDERS: PCP Internal Medicine; Visit Provider Internal Medicine | DX: Z12.31 Encounter for screening mammogram for malignant neoplasm of breast (principal) | CPT/HCPCS: 77063; 77067 ==

== ENCOUNTER → 2023-06-08 08:30 | Outpatient (BNV) | payer BC, SELFPAY | PROVIDERS: PCP Internal Medicine; Visit Provider Radiology Diagnostic Radiology | DX: Z12.31 Encounter for screening mammogram for malignant neoplasm of breast (principal) | CPT/HCPCS: 77063; 77067 ==

== ENCOUNTER 2023-08-31 13:06 | Outpatient (REF) | payer BC, SELFPAY ==
[2023-09-08 22:47] LABS: HPV mRNA E6/E7 rflx Not Detected (Not Detected)
== END 2023-08-31 13:07 | disposition home or self-care (01) ==
LOC: HO.LNP 13:06
PROVIDERS: Visit Provider Advanced Practice Midwife
DX: Z01.411 Encounter for gynecological examination (general) (routine) with abnormal findings (principal); Z11.51 Encounter for screening for human papillomavirus (HPV)
CPT/HCPCS: 87624; 88142

== ENCOUNTER 2023-08-31 13:06 | Outpatient (AMB) | payer BC, SELFPAY ==
--- NOTE | 2023-08-31 13:16 | A.OFFVIS_ITS ---
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 Doing well with no concerns. She tries to eat healthy, limited exercise due to foot pain. Regular monthly menses this year, previously skipped a few months at a time. had a vasectomy. Currently is sexually active. She denies vaginal itching and irritation. STI screening offered; she declines. Family history of breast and ovarian cancer. No history of colon cancer. Last pap smear 2018, negative. Mammogram: 2023. [facility] Medical History Vitamin D deficiency Mixed hyperlipidemia Morbid obesity with BMI of 40.0-44.9, adult GERD (gastroesophageal reflux disease) Surgical History Hx of colonoscopy History of esophagogastroduodenoscopy (EGD) Hx of adenoidectomy Hx of tonsillectomy Family History Mother Ovarian cancer Maternal Grandmother History of breast cancer Social History Household Members: Spouse and Children Housing: House Alcohol intake: current Alcohol intake frequency: a few times a month Patient Tobacco Use Status: Never used Tobacco e-Cigarette/Vaping Use: Never Used Second Hand Smoke Exposure: No Current occupational status: employed 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[employer] Sexual orientation: Straight/Heterosexual Gender identity: Female Cognitive needs: No Hearing needs: No Vision needs: No Female Reproductive History Menstrual Age of Menarche: 14 Duration of menses: 3-5 days Date of last menstrual period: 08/25/23 control method: none Total pregnancies: 2 Full term: 2 Number of Living Children: 2 Date of last pap smear: 07/12/18 (negative) History of abnormal pap smear: No Date of Mammogram: 06/08/23 Review of Systems Const All systems reviewed & are unremarkable except as noted in HPI and below Reports as per HPI Eyes Reports no additional complaints ENT Reports no additional complaints Card Reports no additional complaints Resp Reports no additional complaints GI Reports as per HPI and Reports no additional complaints Reports as per HPI Musc Reports no additional complaints Skin/Breast Reports as per HPI Neuro Reports no additional complaints Psych Reports no additional complaints Endo Reports no additional complaints Tay/Lymph Reports no additional complaints Aller/Immun Reports no additional complaints Physical Exam Vital Signs: BMI result Body Mass Index 41.1 Const General: cooperative, healthy appearing, no acute distress, well developed and alert Orientation/consciousness: patient oriented x3 HEENT Head: Yes normal to inspection Eyes General: appearance normal, both eyes and all related structures Neck Neck: Yes normal visual inspection Thyroid: Thyroid normal Chest Chest palpation & inspection: normal inspection of the chest and other (no puckering, dimpling, peau de orange, retraction, discharge, masses) Breast/axilla inspection: normal inspection of the breasts Breast/axilla palpation: normal palpation of the breasts Resp Effort & Inspection: normal respiratory effort GI Inspection: Yes normal to inspection Palpation (GI): Soft to palpation Rectal Exam - Female: deferred General: Yes bladder normal to palpation External Female Exam: normal external appearance and normal appearance of the urethra Speculum Exam - Vagina: normal appearance of the vagina, normal palpation and normal vaginal discharge Speculum Exam - Cervix: normal appearance of the cervix, normal palpation and Other cervical findings present (Bled slightly with Pap) Bimanual exam- vagina & uterus: normal bimanual exam, normal palpation, uterine size normal, bladder normal to palpation, normal palpation and non-tender Bimanual Exam- Adnexa, other: no masses Skin General skin exam: no rashes or lesions noted Rashes: no rashes Neuro General: patient oriented x3 Cognition (Neuro): normal cognition Extrem General: Yes normal to inspection Psych Attitude: cooperative Thought process: Normal thought process present Assessment & Plan Assessment & Plan (1) Encounter for gynecological examination (general) (routine) with abnormal findings: Code(s): Z01.411 - Encounter for gynecological examination (general) (routine) with abnormal findings Category: Medical Plan Discussed: Current recommendations for pap smears per ASCCP guidelines. Pap smear obtained. Breast awareness and periodic breast exams. Maintain a healthy lifestyle including a well balanced diet and routine exercise. Menopause verses perimenopause. Menopause is definitive of 1 year of no menses or 12 months in succession. Report any abnormal uterine bleeding in example prolonged episodes, or short intervals less than 21 days. Mammogram yearly. Patient verbalizes understanding and agrees to the plan of care. She was given opportunity to ask questions and all questions were answered to the best of my ability. 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 This note is constructed using voice recognition software. While every effort has been made to ensure accuracy, manager subway errors may have been included. Orders: Orders Pap Smear Today Z12.4 - Encounter for screening for malignant neoplasm of cervix Coding Level of Care Code Est Pt Prev Care 40-64y(12963) Diagnoses Encounter for gynecological examination (general) (routine) with abnormal findings Z01.411
[2023-08-31 13:17] VITALS: BP 126/74; BMI 41.1
== END 2023-08-31 14:02 | disposition home or self-care (01) ==
PROVIDERS: PCP Internal Medicine; Visit Provider Advanced Practice Midwife
DX: Z01.411 Encounter for gynecological examination (general) (routine) with abnormal findings (principal)
CPT/HCPCS: 99396

== ENCOUNTER 2024-05-19 16:48 | Outpatient (AMB) | payer BC, SELFPAY ==
--- OUTSIDE RECORDS SUMMARY | 2024-05-19 16:51 | XMS_ITS | Patient Health Record ---
[facility] Address [address] [place] [address] Care Team Providers Care Sales Trainer Name Role Phone Boogie KABA, Jennings Primary Care Provider Unagem ilable Black, Sl[place] Unavailable [phone] Allergies Allergen (clinical drug ingredient) Drug/Non Drug Allergy documented on EMR Reaction Allergy Type Onset Date Status sulfamethoxazole / trimethoprim Bactrim hives Drug Allergy Active Biaxin heart races Drug Allergy Activ e azithromycin Zithromax Z-Paddy heart races Drug Allergy Active erythromycin Erythromycin heart races Drug Allergy Active Penicillin tongue swells Drug Allergy Ac tive Substance with sulfonamide structure and antibacterial mechanism of action (substance) Sulfa Antibiotics hives Drug Allergy Active Results Component Value Reference Range Notes X ray : Foot, left 2V Reviewed date:06/21/2023 04:03:30 PM Interpretation:See Examination above Performing Lab: Notes/Report: See Examination above Reason For Referral No Information Medications Medication SIG (Take, Route, Frequency, Duration) Notes Start Date End Date Status Night Splint AFO - L1930 1 wear at rest for 30 days Active Pepcid PRN Active Vitamin D Active Dulcolax 10 MG 1 suppository as nee ded Rectal Once a day Not-Taking Polyethylene Glycol 3350 Not-Taking Multi Vitamin Active Social History Tobacco Use: Social History Observation Description Date Details (start date - stop date) Never Smoker NA - NA Tobacco Use/Smoking Question Answer Notes Are you a: nonsmoker Additional Findings: Tobacco Non-User Current no n-smoker Alcohol Screen Question Answer Notes Did you have a drink contain ing alcohol in the past year? Yes How often did you have a dri nk containing alcohol in the past year? Monthly or less (1 point) Points 1 Interpretation Negative Tobacco use other than smoking: Question Answer Notes Are you an other tobacco user? No Problems Problem Type SNOMED Code ICD Code Onset Dates Problem Status W/U Status Risk Notes Problem Interstitial myositis (55323844) Interstitial myositis of right foot (M60.171) Active confirmed Vital Signs Height 5ft 2in in 06/21/2023 Weight 220 lbs 06/21/2023 BMI 40.23 kg/m2 06/21/2023 Procedures Procedure Date Ordered Date Performed Result Body Sit e 35826,[id number] TENDON SHEATH/LIGAMENT 06/21/2023 N/A Encounters Encounter Location Date Provider [facility] [address] 06/21/2023 [facility] Plantar fasciitis of right foot M72.2 ; Peroneal tendinitis, left M76.72 ; Pain in right foot M79.671 ; Calcaneal spur, right foot M77.31 ; 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 ; Bursitis of right foot M77.51 ; Pain in left foot M79.672 ; Pain in left ankle and joints of left foot M25.572 and Bursitis of left foot M77.[address] [address] 08/23/2023 [facility] [address] 11/12/2023 [facility] Assessments Encounter Date Diagnosis (ICD Code) Assessment Notes Treatment Notes Treatment Clinical Notes Section Notes 06/21/2023 Plantar fasciitis of right foot (ICD-10 - M72.2) Patient Educated with: INJECTIONTHERA PY.pdf (INJECTIONTHER APY.pdf) 06/21/2023 Peroneal tendinitis, left (ICD-10 - M76.72) 06/21/2023 Pain in right foot (ICD-10 - M79.671) 06/21/2023 Calcaneal spur, right foot (ICD-10 - M77.31) 06/21/2023 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) 06/21/2023 Bursitis of right foot (ICD-10 - M77.51) 06/21/2023 Pain in left foot (ICD-10 - M79.672) 06/21/2023 Pain in left ankle and joints of left foot (ICD-10 - M25.572) 06/21/2023 Bursitis of left foot (ICD-10 - M77.52) Plan Of Treatment Pending Test Test Name Order Date X ray : Foot, right 3V 12/07/[id number] TENDON SHEATH/LIGAMENT 1 50,[id number] TENDON SHEATH/LIGAMENT 0 06/21/2023 Insurance Providers Payer Name Payer Address Payer Phone Subscriber Number Group Number Insured Name Patient Relationship to Insured Coverage Start Date Coverage End Date [facility] [address] [place] [address] [id number] Leung Spouse - patient is the spouse of the insured Medical (General) History Medical History History ICD Code Reflux ( GERD) Chicken pox Mixed Hperlipidemia Vitamin D deficiency Obesity, morbid Surgical History Surgery Date(Month/Year) tonsillectomy adenoidectomy colonoscopy
--- OUTSIDE RECORDS SUMMARY | 2024-05-19 16:51 | XMS_ITS ---
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 Generated for Evelioi wayne/Aishwarya/eTransmitting on:?05/19/2024 04:51 PM EST
--- OUTSIDE RECORDS SUMMARY | 2024-05-19 16:51 | XMS_ITS ---
Author Organization [facility] Address [address] [place] [address] Care Team Providers Care Vice President Of Procurement Name Role Phone Ketan Hyman MD Primary Care Provider Unava ilSlime Win [phone] Encounters Encounter Location Date Provider Diagnosis [facility] [address] [place] [address] 08/23/2023 Slime Evangelista Plan Of Treatment No Information Progress Notes * Waleska RAYMUNDO MDOB: 5 (49 yo F)Acc No.[id number]:08/23/2023 Progress Notes Patient:?Waleska RAYMUNDO Provider:?Slime Evangelista DPM :1975???Age:48 Y???Sex:Female D ate:08/23/2023 Address:[address] [place], [place] [id number] Pcp:Ketan Hyman MD Subjective: * Chief Complaints: * ??? * Medical History:? Objective: * Vitals:? Assessment: Plan: * Treatment: * Images: * The named appointment provid er may or may not be the originator of this progress note, and it is not deemed complete until electronically signed by the appointment provider. Sign off status: Pending * Provider:?Slime Evangelista DPM Date:?2023 Generated for Rachel black/Aishwarya/eTransmitting on:?05/19/2024 04:51 PM EST
--- OUTSIDE RECORDS SUMMARY | 2024-05-19 16:51 | XMS_ITS | Data Portability ---
Author Organization [facility] [address] Address [address] [place] [address] Assessment Encounter Date Assessment Date Assessment LastModified by Organization Details LastModified Time 08/28/2023 08/28/2023 Acute bronchitis is a common clinical condition characterized by an acute onset but persistent cough, with or without sputum production. It is typically self-limited, resolving within one to three weeks. Symptoms result from inflammation of the lower respiratory tract and are most frequently due to viral infection. Treatment is focused on patient education and supportive care. Antibiotics are not needed for the great majority of patients with acute bronchitis but are greatly overused for this condition. Reducing antibiotic use for acute bronchitis is a national and international health care priority. In most patients, the cough persists for 1 to 3 weeks, with a average duration of 18 days. The cough may be associated with either purulent or nonpurulent sputum production The presence of purulent sputum is a nonspecific finding and does not appear to be predictive of bacterial infection or that antibiotics are needed. For the great majority of patients, use of antibiotics does not hasten recovery or prevent complications but puts patients at increased risk of adverse effects including potentially severe complications such as Clostridioides difficile infection and anaphylaxis. Non-Pharmacological treatment for coughin. Throat lozenges 2. Hot tea 3. Honey 4. Smoking cessation 5. Avoidance of secondhand smoke. Pharmacological Treatment: 1. Robatussin or Guafenasin 2. Antihistamines 3. Dextromethoraphen I would plan on being seen again if any of the following symptoms develop: 1. Fever (100.5) 2. Shortness of breath 3. Wheezing 4. Worsening Cough. I would go to the ER if you develop: 1. Severe Shortness of breath 2. Chest Pain 3. Wheezing 4. Coughing up Blood ronchaga Not available 08/28/2023 12:21:45 Plan of Treatment Reminders Order Date Submit Date Provider Last Modified By Organization Details Last Modified Time Details Appointments None recorded. Lab None recorded. Referral None recorded. Procedures None recorded. Surgeries None recorded. Imaging None recorded. Medication Orders pred[facility]one 50 mg tablet [id number] [address] [place], [address], 4 12:21:49 benzonatate 200 mg capsule 2023 [id number], [address] [place], [address], 4 12:21:49 Claritin-D 12 Hour 5 mg-120 mg tablet,exte nded release 2023 [id number] [address] [place], [address], 12:21:48 Patient TargetsNo targets recorded. Patient Instructions Encounter Date Encounter Id Patient Instructions Last Modified By Organization Details Last Modified Time 08/28/2023 [id number] bronchitis: care instructions ronchaga Not available 08/28/2023 12:21:46 cough: care instructions ronchaga Not available 08/28/2023 12:21:47 Reason for Referral None Reported. Problems Name Problem SNOMED Code Status Onset Date Resolution Date Notes Provider Name and Address Organization Details Recorded Time Cough 60385673 Active 2023 TAY MICHELLE NP [address] [place], [address], [place] - [facility] 4 12:19:02 Bronchitis 27755629 Active 2023 TAY MICHELLE NP [address] [place], [address], [place] - [facility] 12:19:08 Acute rhinosinusitis 532230919 Active 2023 TAY MICHELLE NP [address] [place], [address], [place] - [facility] 12:19:59 Problem Notes None recorded. Medical Equipment None Reported. Allergies Allergen ID Allergen Name Allergen Category Reaction Reaction Severity Criticality Documentation Date Start Date Code Code System Note Provider Name and Address Organization Details Recorded Time 945962 Product containin g penicilli n and antibioti c (product) medicatio n Not available Not available Not available 08/28/2023 58692 05 SNOMED Rosalina [place] null, [place] - [facility] 12:00:35 437605 Substance with sulfonami de structure and antibacte rial mechanism of action (substanc e) medicatio n Not available Not available Not available 08/28/2023 10035 8003 SNOMED Rosalina [place] null, [place] - [facility] 12:00:42 537370 azithromy mable medicatio n Not available Not available Not available 08/28/2023 17255 RxNorm Rosalina [place] null, [place] - [facility] 12:00:48 Medications Name Sig Start Date Stop Date Status Note LastModified by Organization Details LastModified Time clindamycin HCl 300 mg capsule TAKE 1 CAPSULE BY MOUTH THREE TIMES A DAY 08/27 completed Not Available Not Available Not Available benzonatate 200 mg capsule Take 1 capsule 3 times a day by oral route for 7 days. 2023 active Not Available Not Available Not Avai lable oxycodone-ac etaminophen 5 mg-325 mg tablet TAKE 1 TABLET BY MOUTH EVERY 4 TO 6 HOURS NEEDED 08/27 completed Not Available Not Available Not Available prednisone 50 mg tablet Take 1 tablet every day by oral route for 5 days. 2023 active Not Available Not Available Not Avai lable Claritin-D 12 Hour 5 mg-120 mg tablet,exten ded release Take 1 tablet every 12 hours by oral route for 7 days. 2023 active Not Available Not Available Not Avai lable ibuprofen 600 mg tablet TAKE 1 TABLET EVERY 4 TO 6 HOURS NEEDED 08/27 completed Not Available Not Available Not Available chlorhexidin e gluconate 0.12 % mouthwash SWISH AND SPIT 15 ML IN THE MORNING AND IN THE EVENING FOR 2 WEEKS 08/27 completed Not Available Not Available Not Available cholecalcife rol (vitamin D3) 50 mcg (2,000 unit) capsule TAKE 1 CAPSULE BY MOUTH DAILY FOR 90 DAYS active Not Available Not Available No t Available Vitals Date Recorded Body height Body mass index (BMI) Body weight Pain severity - 0-10 verbal numeric rating [Score] - Reported Body temperature Respiratory rate Heart rate Oxygen saturation Oxygen saturation in Arterial blood by Pulse oximetry Systolic blood pressure Diastolic blood pressure Provider Name and Address Organization Details Last Updated DateTime 4 157.48 cm 40.2 kg/m2 80027.3 2 g 6 97.3 [degF] 16 /min 62 /min 97 % 97 % 148 mm[Hg] 91 mm[Hg] Rosalina Rodríguez [place] - [facility] 12:03:36 Social History Question Answer Notes LastModified by [employer] ion Details LastModified Time Tobacco Smoking Status Never Smoker Rosalina bansal [place] - [facility] 08/28/2023 12:01:48 What Is Your Level Of Alcohol Consumption? Occasional Information not available 08/28/2023 Have You Had A Flu Shot This Season? No Information not available 08/28/2023 Have You Recently Traveled Abroad? No Information not available 08/28/2023 Sex: Female Functional Status None recorded. Mental Status None recorded. Family History Relationship Description Onset Age of this Age Resolved Age Notes LastModified by Organization Details LastModified Time Father No current problems or disability Not available 08/27 12:01:38 Mother No current problems or disability Not available 08/27 12:01:38 Medical History No medical history recorded. Gynecological History Statement/Question Response Date of LMP 08/21/2023 Obstetrics History GPAL:G 0 P 0 0 0 0 Past Encounters Encounter ID Performer Location Encounter Start Date Encounter Closed Date Diagnosis/Indication Diagnosis SNOMED-CT Code Diagnosis ICD10 Code Diagnosis Note [id number] [facility] [address] [place] [address] 12/01/2019 08:11:41 12/01/2019 09:20:17 [id number] [facility] [address] [place] [address] 06/16/2020 16:35:48 06/16/2020 17:13:25 [id number] [address] [address] [facility] [place] [address] 10/11/2019 08:15:41 10/11/2019 09:02:35 [id number] [place] [address] [place] [address] 08/28/2023 11:08:47 08/28/2023 12:23:30 Cough 46868481 R05.9 Bronchitis 48433291 J40 Acute rhinosinusitis 431 288048 J00 Health Concerns Section Related Observation LastModified by Organization Detai ls LastModified Time None Recorded Concern Status LastModified by Organization Details LastModified Time None Recorded Advance Directives Directive None Recorded Payers Encounter Date Sequence Insurance Name Policy Number Policy Barron Covered Member ID Barron Member ID Guarantor Name 10/11/2019 1 [place] [facility] [id number] Jez Leung [id number] Waleska Xochitl 12/01/2019 1 [place] [facility] [id number] Jez Leung [id number] Waleska Xochitl 06/16/2020 1 [place] [facility] [id number] Jez Leung [id number] Waleska Xochitl 08/28/2023 1 [place] [facility] [id number] Jez Leung [id number] Waleska Xochitl Notes Date Note Type Note Provider Name and Address Organization Details Recorded Time 4 text/html CoughReported bypatient.source of patient informationInformation obtained from patient; Patient arrived at Urgent Care ambulatory Quality:barking;dry; intermittent Severity:mild Duration:constant; 10 days Timing:gradual Context:non-smoker Associated Symptoms:no fever; no chills; no chest pain; no heartburn; no nausea; no vomiting; no wheezing;post nasal drip TAY MICHELLE NP [address] [place], [address], [place] - [facility] 08/28/2023 12:26:23 OBGyn Episode No OBEpisode recorded.
--- OUTSIDE RECORDS SUMMARY | 2024-05-19 16:52 | XMS_ITS ---
[facility] Address [address] [place] [address] Care Team Providers Care Tow Feeder Name Role Phone Boogie KABA [place] Primary Care Provider Unava ilable Jean Carlos, Slime Unavailable [phone] REASON FOR VISIT Pcp- 03/04, PCP -09/2022, Heel pain, Foot pain Medications Medication SIG (Take, Route, Frequency, Duration) Notes Start Date End Date Status Night Splint AFO - L1930 1 wear at rest for 30 days Active Vitamin D Active Dulcolax 10 MG 1 suppository as nee ded Rectal Once a day Not-Taking Polyethylene Glycol 3350 Not-Taking Multi Vitamin Active Pepcid PRN Active Encounters Encounter Location Date Provider Diagnosis [address] [address] 11/12/2023 Slimeboyd Evangelista Plantar fasciitis of right foot M72.2 ; Peroneal tendinitis, left M76.72 ; Pain in right foot M79.671 ; Calcaneal spur, right foot M77.31 ; 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 ; Bursitis of right foot M77.51 ; Pain in left foot M79.672 ; Pain in left ankle and joints of left foot M25.572 and Bursitis of left foot M77.52 Assessments Encounter Date Diagnosis (ICD Code) Assessment Notes Treatment Notes Treatment Clinical Notes Section Notes 11/12/2023 Plantar fasciitis of right foot (ICD-10 - M72.2) Patient Educated with: INJECTIONTHERAlannah PY.pdf (INJECTIONTHER APY.pdf) 11/12/2023 Peroneal tendinitis, left (ICD-10 - M76.72) 11/12/2023 Pain in right foot (ICD-10 - M79.671) 11/12/2023 Calcaneal spur, right foot (ICD-10 - M77.31) 11/12/2023 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) 11/12/2023 Bursitis of right foot (ICD-10 - M77.51) 11/12/2023 Pain in left foot (ICD-10 - M79.672) 11/12/2023 Pain in left ankle and joints of left foot (ICD-10 - M25.572) 11/12/2023 Bursitis of left foot (ICD-10 - M77.52) Plan Of Treatment Treatment Notes Assessment Notes Plantar fasciitis of right foot Patient Educated with: INJECTIONTHERAPY.pdf (INJECTIONTHERAPY.pdf) Next Appt Details Follow Up: 4-6W, Reason: Procedure Notes * Category Sub-Category Detail Notes Injection Tendon Sheath or Fascia 33660, J 0702 Injection - Plantar Fascia w/ mixture of Celestone Soluspan 3mg and 1cc 1 percent Xylocaine Plain anes. utilizing aseptic technique. The patient tolerated the procedure well. A dry sterile dressing was applied. Post injection instructions were dispensed, verbally discussed, and confirmed understood by the patient. I explained that a steroid and local anesthetic injections are administered to relieve pain and inflammation and thereby meant to improve function. I explained the possible complications including but not limited to signs/symptoms of steroid flare, infection, bruising, atrophy, discoloration of skin, change/deviation in toe position, and that additional injections may be necessary, Patient relates post-procedural pain assessment improved at ( 0-1) out of 10 , RIGHT foot , Patient relates post-procedural pain assessment improved at ( 0-1) out of 10 Progress Notes * Waleska RAYMUNDO MDOB: 5 (49 yo F)Acc No.[id number]:11/12/2023 Progress Note Patient:?Waleska RAYMUNDO Provider:?Slime Evangelista DPM :1975???Age:48 Y???Sex:Female D ate:11/12/2023 Address:[address] [place], [place] [address] Pcp:Ketan Hyman MD Subjective: * Chief Complaints: * ???1. Pcp- 03/04 . 2. PCP -0 09/2022. 3. Heel pain. 4. Foot pain. * HPI: ???Heel pain:?Location:?Proximal plantar aspect of Heel, RIGHT.?Duration:?several months.?Course:?improved , at approximately 40 % , intermittent.?Aggravated:?standing, walking, walking first thing in the morning/after rest.?Treatments:?rest , medication ( ADVIL ) , AFO-nightsplint , stretching,inserts , corticosteriod injection (1R).?Foot Pain:?Location:?Outside, Bottom, Forefoot, LEFT.?Duration:?6 weeks.?Onset:?pt rolled her ankle.?Course:?worse.?Aggravated:?any pressure, standing, walking.?Treatments:?rest/alter normal daily activity.? * ROS:?General/Constitutional:?Nausea?denies, denies.?Vomiting?denies, denies.?Hunger Thirst?denies, denies.?Loss appetite?denies, denies.?Chills?denies, denies.?Fatigue?denies, denies.?Fever?denies, denies.?Night Sweats denies, denies.?Unexplained weight loss?denies, denies.?Unexplained weight gain?denies, denies.?HEENTM:?Dentures?denies, denies.?Dizziness?denies, denies.?Glasses/contacts?denies, denies.?Retinopathy?denies, denies.?Blurred/double vision?denies, denies.?TMJ?denies, denies.?Discharge/drainage?denies, denies.?Implants?denies, denies.?Sore throat?denies, denies.?Dental implants?denies, denies.?Hard of hearing ?denies, denies.?Difficulty chewing/swallowing/speaking?denies, denies.?Nose bleeds?denies, denies.?Sore mouth?denies, denies.?Respiratory:?On Oxygen?denies, denies.?Pneumonia/pleurisy?denies, denies.?Bronchitis?denies, denies.?Emphysema?denies, denies.?Coughing?denies, denies.?Cough blood?denies, denies.?Shortness of breath?denies, denies.?Wheezing?denies, denies.?Cardiovascular:?Pacemaker?denies, denies.?MVP?denies, denies.?WPW?denies, denies.?CHF?denies, denies.?Heart attack?denies, denies.?Septal defect?denies, denies.?Rapid beat?denies, denies.?Chest pain ?denies, denies.?Atrial Fib.?denies, denies.?Murmur/Palpitations?denies, denies.?Gastrointestinal:?Hemorrhoids?denies, denies.?Stomach/Abdominal pain?denies, denies.?Dark blood stool?denies, denies.?Irritable bowel ?denies, denies.?Constipation?denies, denies.?Diarrhea?denies, denies.?Hematology:?Swelling?denies, denies.?Clots?denies, denies.?Varicose Veins?denies, denies.?Bruising?denies, denies.?Bleeding problem?denies, denies.?Genitourinary:?Blood urine?denies, denies.?Frequent/Painfu/urination/bladder control?denies, denies.?Kidney stones?denies, denies.?Infection (UTI)?denies, denies.?Nephropathy?denies, denies.?sex trans dis (STD)?denies, denies.?Prostate?denies, denies.?Musculoskeletal:?Hammertoes?denies, denies.?Bunions?denies, denies.?Back Pain?denies, denies.?Muscle Cramps/ Resting?denies, denies.?Muscle cramps / walking?denies, denies.?Generalized aches and pains?denies, denies.?Weakness?denies, denies.?Integ.:?[place]?denies, denies.?Scars?denies, denies.?Corns/calluses?denies, denies.?Ingrown nails?denies, denies.?Painful nails?denies, denies.?Open Sores?denies, denies.?Rashes?denies, denies.?Neurologic:?Difficulty sleeping?denies, denies.?Brain disorder?denies, denies.?Numbness?denies, denies.?Balance trouble?denies, denies.?Confusion?denies, denies.?Fainting/blackouts?denies, denies.?Tingling?denies, denies.?Tremors?denies, denies.? * Medical History:? * Medications:?Taking Multi Vi tamin , Taking Pepcid , Notes to Pharmacist: PRN, Taking Vitamin D , Taking Night Splint AFO - L1930 1 wear at rest , Not-Taking/PRN Dulcolax 10 MG Suppository 1 suppository as needed Rectal Once a day , Not-Taking/PRN Polyethylene Glycol 3350 Objective: * Vitals:? * Examination: ???Heel Pain: ?INSPECTION:? Pain on Palpation to Plantar Fascia med. and central bands, intrinsic musc., infra-calcaneal bursa, and med calc tubercle , RIGHT foot, No pain: posterior/superior heel, achilles bursa/tendon, sinus tarsi, peroneals, or with lateral heel compression; no limited STJ ROM, calor, or ecchymosis, RIGHT foot, States approximately 40 % LESS.?Orthopedic: ?TAILOR'S BUNION:?Enlarged, painful, prominent, inflamed 5th Metatarsal Base , LEFT.?TENDONITIS:?Pain on palpation, inflammation, and fusiform swelling to , Peroneal Complex , LEFT.?X-Rays - IMAGING REPORT: ?Clinical Indication(s):? Evaluate for Fracture, Evaluate Biomechanical Deformity.?Views:?2 views of Foot , LEFT , AP , LO.?Findings:?normal bone and soft tissue density consistent for patients age and sex, hypertrophy 5th MTH.?Fracture:?Negative fractures identified.?Neurological: ?TINEL'S COMPRESSION:? Negative, Lateral sural nerve distribution, Left.?Neuroma Pain: ?PALPATION:?No interspace pain noted on palpation.?General Examination: ?GENERAL APPEARANCE:?Reveals a pleasant, alert, well nourished, well- developed, well hydrated individual, who demonstrates proper attention to hygiene/body habitus, and is in no acute distress, Pt serves as own historian for office visit today.?ORIENTED:?person, place, and time.? 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 Plan: * Treatment: * Procedures:?Injection:?Tendon Sheath or Fascia?14365, J0702 Injection - Plantar Fascia w/ mixture of Celestone Soluspan 3mg and 1cc 1 percent Xylocaine Plain anes. utilizing aseptic technique. The patient tolerated the procedure well. A dry sterile dressing was applied. Post injection instructions were dispensed, verbally discussed, and confirmed understood by the patient. I explained that a steroid and local anesthetic injections are administered to relieve pain and inflammation and thereby meant to improve function. I explained the possible complications including but not limited to signs/symptoms of steroid flare, infection, bruising, atrophy, discoloration of skin, change/deviation in toe position, and that additional injections may be necessary, Patient relates post-procedural pain assessment improved at ( 0-1) out of 10 , RIGHT foot , Patient relates post-procedural pain assessment improved at ( 0-1) out of 10.? * Procedure Codes:?03418 INJ T ENDON SHEATH/LIGAMENT, Modifiers: XS , J0702 INJ BETAMETHSN ACTAT&SOD PHOSPH-3MG, 94306 X-RAY EXAM OF LEFT FOOT 2V, Modifiers: 26 , [place], [address] XRAY TECHNICAL COMP, Modifiers: TC * Follow Up:?4-6W * Images: * The named appointment provid er may or may not be the originator of this progress note, and it is not deemed complete until electronically signed by the appointment provider. Sign off status: Pending * Provider:?Slime Evangelista DPM Date:?2023 Generated for Rachel Negro/Paulitting on:?05/19/2024 04:51 PM EST History and Physical Notes * HPI (History of Present Illness) Category Sub-Category Detail Notes Category Not es Heel pain Duration: several months Location: Proximal plantar asp ect of Heel, RIGHT Aggravated: standing, walking, w alking first thing in the morning/after rest Course: improved , at approx imately 40 % , intermittent Treatments: rest , medication ( ADVIL ) , AFO-nightsplint , stretching,inserts , corticosteriod injection (1R) Foot Pain Location: Outside, Bottom, Forefoot, L EFT Duration: 6 weeks Onset: pt rolled her ankle Course: worse Aggravated: any pressure, standi ng, walking Treatments: rest/alter normal da ezio activity Examination Category Sub-Category Detail Notes Category Not es Neuroma Pain PALPATION: No interspace pa in noted on palpation Neurological TINEL'S COMPRESSION: Negative, L ateral sural nerve distribution, Left Orthopedic TAILOR'S BUNION: Enlarged, painf ul, prominent, inflamed 5th Metatarsal Base , LEFT TENDONITIS: Pain on palpation, i nflammation, and fusiform swelling to , Peroneal Complex , LEFT General Examination GENERAL APPEARANCE: Reveals a pleasant, alert, well nourished, well-developed, well hydrated individual, who demonstrates proper attention to hygiene/body habitus, and is in no acute distress, Pt serves as own historian for office visit today ORIENTED: person, place, and t geovanny X-Rays - IMAGING REPORT Findings: normal b one and soft tissue density consistent for patients age and sex, hypertrophy 5th MTH Fracture: Negative fractures i dentified Views: 2 views of Foot , LE FT , AP , LO Clinical Indication(s): Evaluate for Fra cture, Evaluate Biomechanical Deformity Heel Pain INSPECTION: Pain on Palpatio n to Plantar Fascia med. and central bands, intrinsic musc., infra-calcaneal bursa, and med calc tubercle , RIGHT foot, No pain: posterior/superior heel, achilles bursa/tendon, sinus tarsi, peroneals, or with lateral heel compression; no limited STJ ROM, calor, or ecchymosis, RIGHT foot, States approximately 40 % LESS
--- NOTE | 2024-05-19 16:57 | A.OFFPC_ITS ---
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 Required: No Accompanied by: Self / Same As Patient Allergies azithromycin [AZITHROMYCIN] Allergy (Unknown, Verified 05/19/24 17:26) TACHYCARDIA penicillin V Allergy (Unknown, Verified 05/19/24 17:26) angioedema Sulfa (Sulfonamide Antibiotics) [SULFA (SULFONAMIDE ANTIBIOTICS)] Allergy (Unknown, Verified 05/19/24 17:26) HIVES, TACHYCARDIA, hives Medication List - Last Reconciled 05/19/24 by Ketan Hyman MD cholecalciferol (vitamin D3) 50 mcg PO DAILY 90 days famotidine (Pepcid) 20 mg PO BID PRN multivitamin (Multiple Vitamins tablet) 1 tab PO DAILY Tobacco use date assessed: 05/19/24 Dental Screening Dental Screen Date: 05/19/24 Did you have a dental visit in the last 12 months?: Yes Did you have a dental problem in the last 6 months where you did not have access to dental care?: No Was dental information given to patient?: Patient has dentist HPI CPE HPI Details Patient comes in today for her annual physical examination - she was last seen here over a year ago in 02/2023 States that she feels okay She denies any headaches or dizziness Denies any chest pains, no SOB No nausea/vomiting, no abdominal pain No change in bowel habits noted She denies any acute urinary symptoms She had her screening colonoscopy done last year in April 2023 - procedure was normal and her next colonoscopy will be in 10 years (2033) She is scheduled for her next yearly gynecology exam and pap smear in August 2024 Her annual mammogram was last done in May 2023 and she is already scheduled for her next mammogram later this month on 06/09/2024 [facility] Medical History Vitamin D deficiency Mixed hyperlipidemia Morbid obesity with BMI of 40.0-44.9, adult GERD (gastroesophageal reflux disease) Surgical History Hx of colonoscopy History of esophagogastroduodenoscopy (EGD) Hx of adenoidectomy Hx of tonsillectomy Family History Mother Ovarian cancer Maternal Grandmother History of breast cancer Social History Household Members: Spouse and Children Housing: House Alcohol intake: current Alcohol intake frequency: a few times a month Patient Tobacco Use Status: Never used Tobacco e-Cigarette/Vaping Use: Never Used Second Hand Smoke Exposure: No Current occupational status: employed 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 1. Little interest or pleasure in doing things: not at all 2. Feeling down, depressed, or hopeless: not at all 3. Trouble falling or staying asleep, or sleeping too much: not at all 4. Feeling tired or having little energy: not at all 5. Poor appetite or overeating: not at all 6. Feeling bad about yourself - or that you are a failure or have let yourself or your family down: not at all 7. Trouble concentrating on things, such as reading the newspaper or watching t elevision: not at all 8. Moving or speaking so slowly that other people could have noticed. Or the opposite - being so fidgety or restless that you have been moving around a lot more than usual: not at all 9. Thoughts that you would be better off or of hurting yourself in some way: not at all Total score: 0 Depression Screening Interpretation: Negative Depression Screening Done: Yes 71865 - PHQ-9 Billing: Yes Source: Developed by Drs. Greg Foreman, Neeta Gomes, Pietro Mckeon and colleagues, with an educational carey from [employer]. Thrive Questionnaire Date Thrive assessed: 05/19/24 I am a: Patient What is your living situation today?: I have a steady place to live Within the past 12 months, did the food you bought not last and you didn't have the money to get more?: Never true Within the past 12 months, did you worry whether your food would run out before you got money to buy more?: Never true Do you have trouble paying for medicines?: No Do you have trouble getting transportation to medical appointments?: No Do you have trouble paying your heating and electricity bill?: No Do you have trouble taking care of your child, family member or friend?: No Do you have trouble with day-to-day activities such as bathing, preparing meals, shopping, managing finances, etc.?: No Are you currently unemployed and looking for a job?: No Are you interested in more education?: No Please select the resources that you would like help with: None Currently or been in a relationship where the following occur: No concerns reported THRIVE Score: 0 AUDIT C Alcohol Use Questionnaire (AUDIT-C) 1. How often do you have a drink containing alcohol?: Monthly or less 2. How many drinks containing alcohol do you have on a typical day when you are drinking?: 1 or 2 3. How often do you have six or more drinks on one occasion?: Never Total Score: 1 Score Reviewed/Action Taken: Yes VANESSA-7 AMB Questionnaire VANESSA-7 Date VANESSA - 7 assessed: 05/19/24 Feeling nervous, anxious, or on edge: 0 = Not at all Not being able to stop or control worryin = Not at all Worrying too much about different things: 0 = Not at all Trouble relaxin = Not at all Being so restless that it is hard to sit still: 0 = Not at all Becoming easily annoyed or irritable: 0 = Not at all Feeling afraid as if something awful might happen: 0 = Not at all Total VANESSA-7 score (0-4 normal; 5-9 mild; 10-14 moderate; 15-21 severe): 0 Source: Developed by Drs. Greg Foreman, Neeta Gomes, Pietro Mckeon and colleagues, with an educational carey from [employer]. Review of Systems Const Denies chills, Denies fatigue, Denies fever(s), Denies headache(s) and Denies malaise Eyes Denies blurry vision, Denies change in vision, Denies irritation and Denies itchy eyes ENT Denies dysphagia, Denies dizziness, Denies otalgia, Denies headache(s), Denies nasal congestion, Denies neck pain, Denies odynophagia, Denies sinus pain and Denies sore throat Card Denies chest pain, Denies rapid heart rate, Denies irregular heart rhythm, Denies palpitations and Denies dyspnea Resp Denies chest congestion, Denies cough, Denies dyspnea and Denies wheezing GI Denies abdominal pain, Denies bloating, Denies constipation, Denies dysphagia, Denies heartburn, Denies diarrhea, Denies nausea, Denies odynophagia and Denies vomiting Denies hematuria, Denies urinary frequency, Denies dysuria, Denies urinary incontinence and Denies urinary urgency Musc Denies back pain, Denies arthralgias, Denies joint swelling, Denies muscle weakness and Denies neck pain Skin/Breast Denies breast pain, Denies breast mass, Denies change in pigmentation, Denies lesions, Denies rash and Denies unusual bruising Neuro Denies dizziness, Denies headache(s) and Denies paresthesias Psych Denies anxiety and Denies depression Endo Denies fatigue and Denies palpitations Tay/Lymph Denies easy bruising Aller/Immun Denies itchy eyes and Denies wheezing Physical exam (Primary Care) Vital Signs: Last Vital Signs Pulse 65 05/19/24 16:59 BP 122/76 05/19/24 16:59 Pulse Ox 97 05/19/24 16:59 Oxygen Delivery Method Room Air 05/19/24 16:59 BMI result Body Mass Index 42.2 Tobacco/Smoking Status: Tobacco use Status Tobacco use date assessed 05/19/24 05/19/24 17:04 Patient Tobacco Use Status Never used Tobacco 05/19/24 16:57 e-Cigarette/Vaping Use Never Used 05/19/24 16:57 PHQ-9: PHQ-9 Score PHQ-9: Total score 0 05/19/24 21:41 Depression Screening Interpretation: Negative Thrive Assessment: Date of Thrive Assessment Date Thrive assessed 05/19/24 05/19/24 17:04 Currently or been in a relationship where the following occur: No concerns reported Const General: no acute distress, alert and awake Orientation/consciousness: patient oriented x3 HENMT Head: Yes normocephalic and Yes atraumatic Ears: external ears normal, TM's normal bilaterally and EAC's normal General nose exam: No nasal discharge present Face and sinus: Yes normal facial exam and Yes sinuses nontender Teeth and gingiva: dentition normal Throat: Yes posterior oropharynx normal and Yes tonsils normal (no TP congestion) Eyes Eyelids: Yes eyelids normal Conjunctivae: conjunctivae normal Pupils: Equal, round and reactive pupils present EOM: EOMs intact bilaterally Neck Neck: Yes no lymphadenopathy and Yes supple Thyroid: Thyroid normal Resp Auscultation: clear to auscultation bilaterally, no rales and no wheezes Cardio Rate: regular rate Rhythm: regular rhythm Heart sounds: no murmurs GI Palpation (GI): Soft to palpation, nontender and No hepatosplenomegaly present Auscultation: normal bowel sounds General: Yes no CVA tenderness Back/Spine/Pelvis Back: no CVA tenderness Thoracic/Lumbar Spine: thoracic and lumbar spine normal to inspection Skin Lesions: no lesions Rashes: no rashes Neuro General: patient oriented x3, moves all extremities, no focal motor deficits and CN's II-XI intact bilaterally Cranial nerves: Yes Equal, round and reactive pupils present Cognition (Neuro): normal cognition Gait exam (Neuro): Normal gait present Extrem General: Yes no clubbing, cyanosis or edema Coding Level of Care Code Est Pt Prev Care 40-64y(18003) Diagnoses Annual physical exam Z00.00 Gastroesophageal reflux disease without esophagitis K21.9 Esophagitis presence: without esophagitis Mixed hyperlipidemia E78.2 Vitamin D deficiency E55.9 Uterine leiomyoma, unspecified location D25.9 Uterine leiomyoma location: unspecified location Morbid obesity with BMI of 40.0-44.9, adult E66.01; Z68.41 Additional Codes PHQ-9 - 37220 - PHQ-9 Billing: Yes ([id number]) Assessment & Plan Assessment & Plan (1) Annual physical exam: Code(s): Z00.00 - Encounter for general adult medical examination without abnormal findings Category: Medical Plan: Check labs She is up-to-date with all of her cancer screenings at present She had her screening colonoscopy done last year in April 2023 - procedure was normal and her next colonoscopy will be in 10 years (2033) She is scheduled for her next yearly gynecology exam and pap smear in August 2024 Her annual mammogram was last done in May 2023 and she is already scheduled for her next mammogram later this month on 06/09/2024 She is not due to start BMD screening yet (2) GERD (gastroesophageal reflux disease): Code(s): K21.9 - Gastro-esophageal reflux disease without esophagitis Category: Medical Qualifiers: Esophagitis presence: without esophagitis Qualified Code(s): K21.9 - Gastro-esophageal reflux disease without esophagitis Plan: Dietary restrictions reinforced Upper GI series done in the past revealed (+) reflux She also had EGD done last year on 04/16/2023, which revealed (+) mild gastric antral erythema with a few small chronic appearing erosions; biopsy revealed antral-type and oxyntic mucosa with mild chronic inactive inflammation; no Helicobacter organisms seen Continue Famotidine 20 mg BID PRN Follow up with GI as scheduled (3) Mixed hyperlipidemia: Code(s): E78.2 - Mixed hyperlipidemia Category: Medical Plan: Patient's cholesterol levels were still elevated when last checked on 03/16/2022, with her total cholesterol at 245 mg/dl and LDL cholesterol at 167 mg/dl Reinforced low cholesterol diet Patient has indicated in the past that she prefers to control her cholesterol levels with diet modification alone and would like to continue to do so Have advised her to get her cholesterol levels rechecked first and as long as her numbers are steadily improving, we can continue with diet modification but otherwise, will need to reconsider medications as an option Will send her to recheck her fasting lipids YUMIKO for follow up (4) Vitamin D deficiency: Code(s): E55.9 - Vitamin D deficiency, unspecified Category: Medical Plan: Continue Vitamin D3 2000 units QD Will recheck her Vitamin D level YUMIKO for follow up (5) Uterine fibroid: Code(s): D25.9 - Leiomyoma of uterus, unspecified Category: Medical Qualifiers: Uterine leiomyoma location: unspecified location Qualified Code(s): D25.9 - Leiomyoma of uterus, unspecified Plan: This was seen on her pelvic US back in 2022 She has been seen by gynecology for this and was advised/reassured as to the benign nature of this condition and that this should stabilize over time and may decrease in size in menopause Follow up with gynecology as scheduled (6) Morbid obesity with BMI of 40.0-44.9, adult: Code(s): E66.01 - Morbid (severe) obesity due to excess calories; Z68.41 - Body mass index [BMI] 40.0-44.9, adult Category: Medical Plan: Reinforced diet/exercise as tolerated/lose weight Plan To return in 1 year for her next annual physical examination Orders: Orders Lipid Panel 05/19/24 E78.00 - Pure hypercholesterolemia, unspecified, Z00.00 - Encounter for general adult medical examination without abnormal findings Complete Blood Count Auto Diff 05/19/24 D64.9 - Anemia, unspecified, Z00.00 - Encounter for general adult medical examination without abnormal findings Comprehensive Marshall. Panel Fast 05/19/24 E78.00 - Pure hypercholesterolemia, unspecified, Z00.00 - Encounter for general adult medical examination without abnormal findings TSH reflex Free T4 05/19/24 E78.00 - Pure hypercholesterolemia, unspecified, Z00.00 - Encounter for general adult medical examination without abnormal findings UA CC w/rflx Micro + Cult 05/19/24 R30.0 - Dysuria, Z00.00 - Encounter for general adult medical examination without abnormal findings Vitamin D 25-OH Total 05/19/24 E55.9 - Vitamin D deficiency, unspecified, Z00.00 - Encounter for general adult medical examination without abnormal findings
[2024-05-19 16:59] VITALS: BP 122/76; PULSE 65; O2SAT 97; BMI 42.2
== END 2024-05-19 17:33 | disposition home or self-care (01) ==
PROVIDERS: PCP Internal Medicine; Visit Provider Internal Medicine
DX: Z00.00 Encounter for general adult medical examination without abnormal findings (principal); K21.9 Gastro-esophageal reflux disease without esophagitis; E66.01 Morbid (severe) obesity due to excess calories; Z68.41 Body mass index [BMI] 40.0-44.9, adult; E78.2 Mixed hyperlipidemia; E55.9 Vitamin D deficiency, unspecified; D25.9 Leiomyoma of uterus, unspecified

== ENCOUNTER → 2024-05-19 16:48 | Outpatient (BNVA) | payer BC, SELFPAY | PROVIDERS: PCP Internal Medicine; Visit Provider Internal Medicine | DX: Z00.00 Encounter for general adult medical examination without abnormal findings (principal); K21.9 Gastro-esophageal reflux disease without esophagitis; E78.2 Mixed hyperlipidemia; E55.9 Vitamin D deficiency, unspecified; D25.9 Leiomyoma of uterus, unspecified; E66.01 Morbid (severe) obesity due to excess calories; Z68.41 Body mass index [BMI] 40.0-44.9, adult | CPT/HCPCS: 96127 ==

== ENCOUNTER 2024-06-09 08:16 | Outpatient (REF) | payer BC, SELFPAY ==
--- NOTE | ~2024-06-09 | MM_ITS ---
EXAMINATION: MM SCREENING DIGITAL BREAST TOMOSYNTHESIS, BILATERAL CLINICAL INFORMATION: Screening. Asymptomatic. COMPARISON: Mammography: Comparison is made with available priors TECHNIQUE: Digital breast mammography with tomosynthesis is performed in both the craniocaudal and mediolateral oblique views along with computer-aided detection (CAD). FINDINGS: There are scattered areas of fibroglandular density (ACR BI-RADS breast composition Category b). There are no significant masses, abnormal calcifications, or other abnormalities. MM/MM tomosynthesis screening BI IMPRESSION: No mammographic evidence of malignancy. ASSESSMENT: BI-RADS BI-RADS 1 - Negative RECOMMENDATION: Routine annual mammography screening. 1 year F/U This examination should not preclude the clinical evaluation of a suspicious palpable abnormality. This patient's information was entered into a reminder system with a target due date for their next mammogram. Electronically signed by: India Butler DO 06/12/2024 03:29 PM LES
--- OUTSIDE RECORDS SUMMARY | 2024-06-09 08:29 | XMS_ITS | Patient Health Record ---
[facility] Address [address] [place] [address] Care Team Providers Care Bunch Breaker Name Role Phone Boogie KABA, [place] Primary Care Provider Unagem ilable Black, Slime Unavailable [phone] Allergies Allergen (clinical drug ingredient) Drug/Non Drug [...] W/U Status Risk Notes Problem Interstitial myositis ([id number]) Interstitial myositis of right foot (M60.171) Active confirmed Vital Signs Height 5ft 2in in 06/21/2023 Weight 220 lbs 06/21/2023 BMI 40.23 kg/m2 06/21/2023 Procedures Procedure Date Ordered Date Performed Result Body Sit e 57931,V8825-JNE TENDON SHEATH/LIGAMENT 06/21/2023 N/A Encounters Encounter [facility] Date [facility] [address] [facility]/21/2023 Slime Evangelista Plantar fasciitis of right foot M72.2 ; Peroneal tendinitis, left M76.72 ; Pain in right foot M79.671 ; Calcaneal spur, right foot M77.31 ; 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 ; Bursitis of right foot M77.51 ; Pain in left foot M79.672 ; Pain in left ankle and joints of left foot M25.572 and Bursitis of left foot M77.[address] [address] 08/23/2023 [facility] [address] 11/12/2023 Slime Evangelista Assessments Encounter Date Diagnosis [...] Date X ray : Foot, right 3V 12/07/202286789,N5446-HOU TENDON SHEATH/LIGAMENT 1 50,S1732-FFL TENDON SHEATH/LIGAMENT 0 06/21/2023 Insurance Providers Payer Name Payer Address Payer Phone Subscriber Number Group Number Insured Name Patient Relationship to Insured Coverage Start Date Coverage End Date [facility] [address] [place] [address] [id number] Spouse - patient is the spouse of the insured Medical (General) History Medical History History ICD Code Reflux ( GERD) Chicken pox Mixed Hperlipidemia Vitamin D deficiency Obesity, morbid Surgical History Surgery Date(Month/Year) tonsillectomy adenoidectomy colonoscopy
--- OUTSIDE RECORDS SUMMARY | 2024-06-09 08:29 | XMS_ITS ---
Author Organization [facility] Address [address] [place] [address] Care Team Providers Care Tool Builder Name Role Phone Boogie KABA, [place] Primary Care Provider Unava ilable Black, Slime Unavailable [phone] REASON FOR VISIT NS 11/12/23 Encounters Encounter Location Date Provider Diagnosis [address] [address] 11/12/2023 Sl[facility] Jean Carlos Plan Of Treatment No Information Progress Notes * Waleska RAYMUNDO MDOB: 5 (48 yo F)Acc No.[id number]:11/12/2023 Patient:?XochitlWaleska marshall :1975???Age:48 Y???Sex:Female Address:[address] [place] [address], [address] * true * Date:? Generated for Evelioi wayne/Aishwarya/eTransmitting on:?06/09/2024 08:28 AM EST
--- OUTSIDE RECORDS SUMMARY | 2024-06-09 08:29 | XMS_ITS ---
[facility] Address [address] [place] [address] Care Team Providers Care Commercial Sheet Metal Foreman Name Role Phone Boogie KABA [place] Primary Care Provider Unava ilable Jean Carlos, Slime Unavailable [phone] REASON FOR VISIT Pcp- 03/04, PCP -09/2022, [...] Active Encounters Encounter Location Date Provider Diagnosis [address] [address] 11/12/2023 Slimeboyd Evangelista Plantar fasciitis of right [...] Detail Notes Injection Tendon Sheath or Fascia 28675, J 0702 Injection - Plantar Fascia w/ [...] Waleska RAYMUNDO MDOB: 5 (49 yo F)Acc No.[id number]:11/12/2023 Progress Note Patient:?Waleska RAYMUNDO Provider:?Slime Evangelista DPM :1975???Age:48 Y???Sex:Female D ate:11/12/2023 Address:[address] [place], [place] [id number] Pcp:Ketan Hyman MD Subjective: * Chief Complaints: [...] Plan: * Treatment: * Procedures:?Injection:?Tendon Sheath or Fascia?91123, J0702 Injection - Plantar Fascia w/ mixture [...] ( 0-1) out of 10.? * Procedure Codes:?86697 INJ T ENDON SHEATH/LIGAMENT, Modifiers: XS , J0702 INJ BETAMETHSN ACTAT&SOD PHOSPH-3MG, 18178 X-RAY EXAM OF LEFT FOOT 2V, Modifiers: 26 , [place], [address] XRAY TECHNICAL COMP, Modifiers: TC * Follow Up:?4-6W * Images: * The named appointment provid er may or may not be the originator of this progress note, and it is not deemed complete until electronically signed by the appointment provider. Sign off status: Pending * Provider:?Slime Evangelista DPM Date:?2023 Generated for Rachel Negro/Paulitting on:?06/09/2024 08:28 AM EST History and Physical Notes * HPI [...]
--- OUTSIDE RECORDS SUMMARY | 2024-06-09 08:29 | XMS_ITS ---
Author Organization [facility] Address [address] [place] [address] Care Team Providers Care Drop Wire Stringer Name Role Phone Ketan Hyman MD Primary Care Provider Unava ilSlime Win [phone] Encounters Encounter Location Date Provider Diagnosis [facility] [address] [place] [address] 08/23/2023 Slime Evangelista Plan Of Treatment No Information Progress Notes * Waleska RAYMUNDO MDOB: 5 (49 yo F)Acc No.[id number]:08/23/2023 Progress Notes Patient:?Waleska RAYMUNDO Provider:?Slime Evangelista DPM :1975???Age:48 Y???Sex:Female D ate:08/23/2023 Address:[address] [place], [place] [id number] Pcp:Ketan Hyman MD Subjective: * Chief Complaints: * ??? * Medical History:? Objective: * Vitals:? Assessment: Plan: * Treatment: * Images: * The named appointment provid er may or may not be the originator of this progress note, and it is not deemed complete until electronically signed by the appointment provider. Sign off status: Pending * Provider:?Slime Evangelista DPM Date:?2023 Generated for Evelioi wayne/Aishwarya/eTransmitting on:?06/09/2024 08:28 AM EST
== END 2024-06-09 08:17 | disposition home or self-care (01) ==
LOC: HO.MAMMO 08:16
PROVIDERS: PCP Internal Medicine; Visit Provider Internal Medicine
DX: Z12.31 Encounter for screening mammogram for malignant neoplasm of breast (principal)
CPT/HCPCS: 77063; 77067

== ENCOUNTER → 2024-06-09 08:30 | Outpatient (BNV) | payer BC, SELFPAY | PROVIDERS: PCP Internal Medicine; Visit Provider Internal Medicine | DX: Z12.31 Encounter for screening mammogram for malignant neoplasm of breast (principal) | CPT/HCPCS: 77063; 77067 ==